=== PATIENT | female | born 1955 | race Caucasian/White ===

== ENCOUNTER → 2017-12-31 09:34 | Outpatient (CLI) | payer OTHER, SELFPAY ==
[2017-12-31 09:42] LABS: Bacteria Urine None Seen; WBC Urine None Seen (0-5/HPF)
[2017-12-31 09:59] LABS: Add Manual Diff / Slide Review NO; Basophils Percent Auto 0.5 % (0-2); Eosinophils Percent Auto 2.9 % (2-4); Hematocrit 44.1 % (36-46); Hemoglobin 14.7 g/dL (12.0-16.0); Lymphocytes Percent Auto 33.7 % (25-40); Mean Corpuscular HGB Conc 33.3 % (30-36); Mean Corpuscular Hemoglobin 30.9 PG (26-34); Mean Corpuscular Volume 92.7 fL (80-100); Monocytes Percent Auto 7.7 % (3-14); Neutrophils Absolute Auto 2100 /uL (3000-5900); Neutrophils Percent Auto 55.2 % (50-75); Platelet Count 171 X10^3/uL (150-400); Red Blood Cell Count 4.76 X10^6/uL (4.0-5.2); Red Cell Distribution Width 13.4 % (11.6-14.8); White Blood Cell Count 3.7 X10^3/uL (4.5-11.0)
[2017-12-31 10:06] LABS: Hemoglobin A1C% w Est Avg Glu 5.5 % (4.0-6.0)
[2017-12-31 10:19] LABS: Alanine Aminotransferase 22 IU/L (9-52); Albumin 4.5 g/dL (3.5-5.0); Albumin Globulin Ratio 1.6 (1.0-2.8); Alkaline Phosphatase 51 U/L (38-126); Aspartate Aminotransferase 26 IU/L (14-36); BUN Creatinine Ratio 23.8 (6-22); Bilirubin Total 0.7 mg/dL (0.2-1.3); Blood Urea Nitrogen 19 mg/dL (7-17); Calcium 10.3 mg/dL (8.4-10.2); Carbon Dioxide 31 mmol/L (22-32); Chloride 104 mmol/L (98-107); Cholesterol 246 mg/dL (140-199); Estimated Glomerular Filt Rate > 60.0 mL/min (>60); Gamma Glutamyl Transpeptidase 14 U/L (12-43); Globulin 2.8 g/dL (1.7-4.1); Glucose 94 mg/dL (80-110); HDL Cholesterol 71 mg/dL (40-60); HEMOLYSIS < 15 (0-50); LDL Cholesterol Calculated 163 mg/dL (<100); Lactate Dehydrogenase 391 U/L (313-618); Magnesium 2.2 mg/dL (1.6-2.3); Potassium 4.6 mmol/L (3.4-5.1); Sodium 143 mmol/L (137-145); Total Protein 7.3 g/dL (6.3-8.2); Triglycerides 59 mg/dL (35-150)
[2017-12-31 10:31] LABS: Appearance Urine UA CLEAR; Bilirubin Urine UA NEGATIVE (NEGATIVE); Color Urine UA YELLOW; Glucose Urine UA NEGATIVE (Normal); Ketones Urine UA NEGATIVE (NEGATIVE); Leukocyte Esterase Urine UA NEGATIVE (NEGATIVE); Nitrite Urine UA Negative (Negative); Occult Blood Urine UA TRACE-INTACT (Negative); Protein Urine UA NEGATIVE (Negative); Urobilinogen Urine UA 0.2 E.U./dL (0.2); pH Urine UA 5.5 (4.5-8.0)
[2017-12-31 10:36] LABS: Culture Indicated Urine Cult Not Indicated; RBC Urine 0-1/HPF (0-5/HPF); Squamous Epithelial Cell Urine 1-5 /HPF
[2017-12-31 10:48] LABS: Ferritin 31.8 ng/mL (11.1-264)
[2017-12-31 12:40] LABS: Free T4, Direct Thyroxine 0.81 ng/dL (0.78-2.19)
[2017-12-31 12:54] LABS: Thyroid Stimulating Hormone 4.37 uIU/mL (0.47-4.68)
== END ==
PROVIDERS: Family Provider Naturopath; PCP Naturopath; Visit Provider Naturopath
DX: D70.9 Neutropenia, unspecified (principal); E03.9 Hypothyroidism, unspecified; G21.3 Postencephalitic parkinsonism
CPT/HCPCS: 36415; 80053; 80061; 81001; 82728; 82977; 83036; 83615; 83735; 84439; 84443; 84481; 85025

== ENCOUNTER → 2018-12-04 10:09 | Outpatient (CLI) | payer OTHER, SELFPAY ==
[2018-12-04 10:31] LABS: RBC Urine None Seen (0-5/HPF)
[2018-12-04 11:06] LABS: Add Manual Diff / Slide Review NO; Basophils Absolute Auto 0 /uL (0-100); Basophils Percent Auto 0.5 % (0-2); Eosinophils Absolute Auto 100 /uL (0-450); Eosinophils Percent Auto 1.6 % (2-4); Hematocrit 41.8 % (36-46); Hemoglobin 14.3 g/dL (12.0-16.0); Lymphocytes Absolute Auto 1100 /uL (1100-4500); Lymphocytes Percent Auto 30.9 % (25-40); Mean Corpuscular HGB Conc 34.3 % (30-36); Mean Corpuscular Hemoglobin 31.8 PG (26-34); Mean Corpuscular Volume 92.7 fL (80-100); Monocytes Absolute Auto 300 /uL (0-900); Monocytes Percent Auto 7.1 % (3-14); Neutrophils Absolute Auto 2100 /uL (1500-7000); Neutrophils Percent Auto 59.9 % (50-75); Platelet Count 155 X10^3/uL (150-400); Red Blood Cell Count 4.51 X10^6/uL (4.0-5.2); Red Cell Distribution Width 13.1 % (11.6-14.8); White Blood Cell Count 3.6 X10^3/uL (4.5-11.0)
[2018-12-04 11:15] LABS: Hemoglobin A1C% w Est Avg Glu 5.2 % (4.0-6.0)
[2018-12-04 11:28] LABS: Appearance Urine UA SL CLOUDY; Bilirubin Urine UA NEGATIVE (NEGATIVE); Color Urine UA YELLOW; Glucose Urine UA NEGATIVE (Negative); Ketones Urine UA NEGATIVE (NEGATIVE); Leukocyte Esterase Urine UA 1+ (NEGATIVE); Nitrite Urine UA NEGATIVE (Negative); Occult Blood Urine UA NEGATIVE (Negative); Protein Urine UA NEGATIVE (Negative); Specific Gravity Urine UA 1.025 (1.000-1.035); Urobilinogen Urine UA 0.2 E.U./dL (0.2)
[2018-12-04 11:36] LABS: Alanine Aminotransferase 16 IU/L (9-52); Albumin 4.3 g/dL (3.5-5.0); Albumin Globulin Ratio 1.7 (1.0-2.8); Alkaline Phosphatase 58 U/L (38-126); Aspartate Aminotransferase 24 IU/L (14-36); BUN Creatinine Ratio 27.5 (6-22); Bilirubin Total 0.6 mg/dL (0.2-1.3); Blood Urea Nitrogen 22 mg/dL (7-17); Calcium 10.2 mg/dL (8.4-10.2); Carbon Dioxide 30 mmol/L (22-32); Chloride 104 mmol/L (98-107); Cholesterol 190 mg/dL (140-199); Creatine Kinase 97 U/L (30-135); Estimated Glomerular Filt Rate > 60.0 mL/min (>60); Globulin 2.6 g/dL (1.7-4.1); Glucose 93 mg/dL (80-110); HDL Cholesterol 59 mg/dL (40-60); HEMOLYSIS < 15 (0-50); LDL Cholesterol Calculated 121 mg/dL (<100); Potassium 4.5 mmol/L (3.4-5.1); Sodium 141 mmol/L (137-145); Total Protein 6.9 g/dL (6.3-8.2); Triglycerides 52 mg/dL (35-150)
[2018-12-04 11:46] LABS: Vitamin D 25 Hydroxy (D3) 31.8 ng/mL (30.0-100.0)
[2018-12-04 11:47] LABS: Amorphous Sediment Urine 1+; Bacteria Urine Many (>30); Culture Indicated Urine Cult Not Indicated; Squamous Epithelial Cell Urine 5-10 /HPF (0-5/HPF); WBC Urine 1-5/HPF (0-5/HPF)
[2018-12-04 11:48] LABS: Free T3, Triiodothyronine Free 2.75 pg/mL (2.77-5.27); Free T4, Direct Thyroxine 0.83 ng/dL (0.78-2.19)
[2018-12-04 12:02] LABS: Thyroid Stimulating Hormone 2.05 uIU/mL (0.47-4.68)
[2018-12-04 12:05] LABS: Ferritin 34.2 ng/mL (11.1-264)
== END ==
PROVIDERS: PCP Naturopath; Visit Provider Naturopath
DX: E55.9 Vitamin D deficiency, unspecified (principal); E06.3 Autoimmune thyroiditis; G21.8 Other secondary parkinsonism
CPT/HCPCS: 36415; 80053; 80061; 81001; 82306; 82550; 82553; 82728; 83036; 84439; 84443; 84481; 85025

== ENCOUNTER 2019-05-16 12:16 | Emergency (ER) | payer OTHER, SELFPAY ==
[2019-05-16 12:18] VITALS: BP 137/77; PULSE 69; RESP 18; TEMP 36.6; O2SAT 98; BMI 21.5
--- NOTE | 2019-05-16 12:42 | DI.RAD.S_ITS ---
PROCEDURE: XR RIBS RT MIN 3V W CXR 1V INDICATIONS: fell and pain in right upper back and ribs TECHNIQUE: 2 views of the right ribs were acquired, along with a single view chest. COMPARISON: [facility], CHEST 1 VIEW, 08/16/2016, 11:55. [facility], CHEST 2 VIEW, 10/03/2012, 8:59. FINDINGS: Surgical changes and devices: None. Bones and chest wall: A marker is placed upon the area of clinical concern. Within this region, no displaced rib fracture or other significant rib abnormality can be seen. No rib fractures are seen elsewhere. No suspicious bony lesions. Overlying soft tissues appear unremarkable. Lungs and pleura: No pleural effusions or pneumothorax. Lungs appear clear. Mediastinum: Mediastinal contours appear normal. Heart size is normal. IMPRESSION: No displaced rib fractures are seen. No pneumothorax. Dictated by: John Armas M.D. on 05/16/2019 at 12:24 Approved by: John Armas M.D. on 05/16/2019 at 12:25
[2019-05-16] MEDS: ACETAMINOPHEN 325 MG TABLET 650 MG PO (13:03)
--- NOTE | 2019-05-16 13:03 | ED_ITS ---
HPI - Fall <BRIAN Garcia - Last Filed: 05/16/19 20:10> General Chief Complaint: Fall Stated Complaint: fall on , mid back pain Time Seen by Provider: 05/16/19 12:22 Source: patient and family Mode of arrival: Wheelchair Limitations: no limitations History of Present Illness HPI Narrative: This is a 63 year female, nonsmoker, who presents to ED with significant other with chief complain of right side thoracic pain and rib pain. Patient states she has history of Parkinson's for last 10 years and she had fall twice this week. Patient fell backwards on grassy/dirt ground 2 days ago. Patient denies injuring her head or having loss of consciousness. Patient denies vomiting or vision changes. Patient currently is not using any cane or walker for ambulation assistance. Patient reports pain increases with certain movements such as pushing her body backwards to sit up in bed in deep breathing. Significant other has been massaging on discomfort area and this has been helpful and also warm pack has been helpful for her discomfort. Related Data Home Medications Medication Instructions Recorded Confirmed LEVOTHYROXINE SODIUM (LEVOTHROID) 0.1 mg PO QDAY #0 10/01/11 11/13/17 MULTIVITAMIN (#MULTIPLE VITAMINS) 1 cap PO QDAY #0 10/01/11 11/13/17 magnesium sulfate (laxative) 495 495 mg PO ONCE gram 11/13/17 11/13/17 mg/5 gram oral granules Previous Rx's Medication Instructions Recorded cyclobenzaprine 5 - 10 mg PO BID PRN #10 tab 05/16/19 lidocaine 1 patch TOP DAILY #15 each 05/16/19 Allergies Allergy/AdvReac Type Severity Reaction Status Date / Time No Known Drug Allergies Allergy Verified 11/13/17 10:53 Review of Systems <Jamari BurnsBRIAN Chambers - Last Filed: 05/16/19 20:10> Review of Systems Narrative: General: Denies fever, chills, fatigue, malaise, sweats. HEENT: Denies sinus pain, ear pain, sore throat, difficulty swallowing, dizziness. Respiratory: Denies dyspnea, cough, wheezing, hemoptysis, sputum. Cardiovascular: Denies chest pain, palpitations, orthopnea, edema. Gastrointestinal: Denies nausea, vomiting, abdominal pain, diarrhea, constipation, melena. : Denies dysuria, frequency, incontinence, hematuria, urinary retention. Musculoskeletal: See HPI Skin: Denies rash, skin lesions, or other. Neurologic: Denies weakness, headache, numbness, change in speech, confusion, seizures, (+) tremors, (+) incoordination. Psychiatric: No concerning psychosocial issues. 12-point review of systems is negative except for those stated above. Patient History <BRIAN Garcia - Last Filed: 05/16/19 20:10> Medical History Hypothyroidism (Chronic) Parkinsons disease (Chronic ~2009) Surgical History History of lumpectomy of left breast (Resolved ~09/2011) Family History Father No problems noted. Mother No problems noted. Social History marital status: number of children: 2 household members: spouse lives independently: Yes pets and animals: Yes education level: college occupational status: other (Artist) Smoking Status: Never smoker alcohol intake: current (1-3 A WEEK ) substance use type: does not use during the past year weight has: remained stable well-balanced diet: daily or most days daily servings fruits/ve or more times/day caffeine: Yes eating out: 1-3 times/week Type(s) of exercise: other (hiking, Parkinson's Disease exercise daily) frequency: 3-4 times per week duration: 60-90 minutes/day Smoking Status: Never smoker alcohol intake frequency: 0-2 drinks per day Alcohol type: wine Substance Use Type: does not use Exam <BRIAN Garcia - Last Filed: 05/16/19 20:10> Narrative Exam Narrative: GEN: Alert, oriented x 3, well appearing and nourished, and in no acute distress. Head: Normal cephalic, atraumatic. No scalp or temporal tenderness, palpable mass or rash. EYES: Pupils are equal, round, and reactive to light and accommodation. Extraocular muscles are intact bilaterally. There is no subconjunctival hemorrhage, exudate and sclera non-icteric. ENT: Bilateral auditory canals and tympanic membranes clear. Hearing grossly intact. Nose without bleeding, purulent discharge or deviation. Facial sinuses nontender to palpate. Mucous membrane moist, no mucosal lesion. Throat without erythema, tonsillar hypertrophy or exudate. Uvula in midline, airway patent. Neck: Trachea in midline. No JVD, non-tender without lymphadenopathy. No masses or thyroid megaly. Supple, non-tender and no meningeal signs. CARDIAC: Normal regular rate and rhythm without murmurs, gallops, or rubs. No chest wall tenderness. No peripheral edema, cyanosis or pallor. Capillary refill is less than 2 seconds. RESPIRATORY: Lungs are clear to auscultate bilaterally. No cough, wheezes, rales, or rhonchi. No stridor, respiratory distress, increase work of breathing , or accessary muscle used. ABD: Abdomen soft, nontender and non-distended. No guarding or rebound tenderness to palpate. Bowel sounds are normal in all 4 quadrants. There is no palpable masses or organomegaly. EXT: Full painless ROM of all extremities with no loss of sensation, strength, effusion or edema. SKIN: Warm, dry, normal color for patient. No erythema, lesions or rash over v isible areas. BACK: Nontender without deformity or crepitance. No flank tenderness. Reports pain is deep in right posterior thoracic and rib area when she attempted to sit up. NEUROLOGICAL: Alert and oriented to place, time and person. Sensation and motor function intact bilaterally. Tremors to right hand. No facial droops, dysphasia. PSYCHIATRIC: Good judgement and reason, without hallucinations, abnormal affect or abnormal behaviors during the examination. Initial Vital Signs Initial Vital Signs: Vital Signs Temperature 97.9 F 05/16/19 12:18 Pulse Rate 69 05/16/19 12:18 Respiratory Rate 18 05/16/19 12:18 Blood Pressure 137/77 05/16/19 12:18 Pulse Oximetry 98 05/16/19 12:18 Back/Spine/Pelvis Thoracic/Lumbar Spine: thoracic and lumbar spine normal to inspection, No surgical scar(s) present, thoraco-lumbar ROM normal, No pain with thoraco-lumbar ROM, paraspinal tenderness, No thoraco-lumbar ROM limited, thoraco-lumbar spasm, No thoracic spinal tenderness and No lumbar spinal tenderness <Jamison Nath DO - Last Filed: 05/17/19 07:34> Initial Vital Signs Initial Vital Signs: Vital Signs Temperature 97.9 F 05/16/19 12:18 Pulse Rate 69 05/16/19 12:18 Respiratory Rate 18 05/16/19 12:18 Blood Pressure 137/77 05/16/19 12:18 Pulse Oximetry 98 05/16/19 12:18 Scores <BRIAN Garcia - Last Filed: 05/16/19 20:10> GCS Jason coma scale eye opening: Spontaneous [place] coma scale verbal response: Orientated [place] coma scale motor response: Obey commands [place] coma scale total score: 15 Course <BRIAN Garcia - Last Filed: 05/16/19 20:10> Orders Ordered: Discontinued Medications Acetaminophen (Tylenol) 650 mg PO NOW ONE Stop: 05/16/19 12:43 Last Admin: 05/16/19 13:03 Dose: 650 mg Documented by: ADELE Cyclobenzaprine HCl (Flexeril) 5 mg PO NOW ONE Stop: 05/16/19 12:43 Last Admin: 05/16/19 13:04 Dose: 5 mg Documented by: ADELE Ketorolac Tromethamine (Toradol) 15 mg IM NOW ONE Stop: 05/16/19 12:43 Last Admin: 05/16/19 13:04 Dose: 15 mg Documented by: ADELE Lidocaine (Lidoderm) 1 each TOP NOW ONE Stop: 05/16/19 14:09 Last Admin: 05/16/19 14:24 Dose: 1 each Documented by: ADELE Lorazepam (Ativan) 0.5 mg IV NOW ONE Stop: 05/16/19 12:25 Vital Signs Vital signs: Vital Signs - 8 hr 05/16/19 12:18 05/16/19 13:54 05/16/19 15:12 Temperature 97.9 F Pulse Rate 69 66 65 Respiratory Rate 18 18 Blood Pressure 137/77 Blood Pressure [Right Arm] 137/77 111/63 Pulse Oximetry 98 99 99 <Jamison Nath DO - Last Filed: 05/17/19 07:34> Orders Ordered: Discontinued Medications Acetaminophen (Tylenol) 650 mg PO NOW ONE Stop: 05/16/19 12:43 Last Admin: 05/16/19 13:03 Dose: 650 mg Documented by: ADELE Cyclobenzaprine HCl (Flexeril) 5 mg PO NOW ONE Stop: 05/16/19 12:43 Last Admin: 05/16/19 13:04 Dose: 5 mg Documented by: ADELE Ketorolac Tromethamine (Toradol) 15 mg IM NOW ONE Stop: 05/16/19 12:43 Last Admin: 05/16/19 13:04 Dose: 15 mg Documented by: ADELE Lidocaine (Lidoderm) 1 each TOP NOW ONE Stop: 05/16/19 14:09 Last Admin: 05/16/19 14:24 Dose: 1 each Documented by: ADELE Lorazepam (Ativan) 0.5 mg IV NOW ONE Stop: 05/16/19 12:25 Vital Signs Vital signs: Vital Signs - 8 hr 05/16/19 12:18 05/16/19 13:54 05/16/19 15:12 Temperature 97.9 F Pulse Rate 69 66 65 Respiratory Rate 18 18 Blood Pressure 137/77 Blood Pressure [Right Arm] 137/77 111/63 Pulse Oximetry 98 99 99 MDM - Fall <BRIAN Garcia - Last Filed: 05/16/19 20:10> Differential Diagnosis Differential diagnosis: Likely compression fracture and other (Rib fracture, thoracic strain, pneumothorax) Medical Records Attestation: I reviewed the patient's medical records. Imaging Data XR-Ribs and chest, Rt: Radiologist's Impression: [address] [address] XRay Report Signed Patient: Ly Foy BMR#: [id number] : 5Acct:[id number] Age/Sex: 63 / FDate of Service: 05/16/19 Loc: ED Accession Number: [id number] Procedure: XR ribs RT min 3V w CXR1V Ordering Provider: Jamari Ortega PROCEDURE: XR RIBS RT MIN 3V W CXR 1V INDICATIONS: fell and pain in right upper back and ribs TECHNIQUE: 2 views of the right ribs were acquired, along with a single view chest. [facility], [facility], CHEST 2 VIEW, 10/03/2012, 8:59. FINDINGS: Surgical changes and devices: None. Bones and chest wall: A marker is placed upon the area of clinical concern. Within this region, no displaced rib fracture or other significant rib abnormality can be seen. No rib fractures are seen elsewhere. No suspicious bony lesions. Overlying soft tissues appear unremarkable. Lungs and pleura: No pleural effusions or pneumothorax. Lungs appear clear. Mediastinum: Mediastinal contours appear normal. Heart size is normal. IMPRESSION: No displaced rib fractures are seen. No pneumothorax. Dictated by: John Armas M.D. on 05/16/2019 at 12:24 Approved by: John Armas M.D. on 05/16/2019 at 12:25 MDM Narrative Medical decision making narrative: This is a 63-year-old female has history of Parkinson's disease and she has been frequently falling. The patient reports deep discomfort in right upper thoracic and ribs from falling backwards 2 days ago and landed on right side of back. Back exam was benign w/o deformity, bruise, swelling. No tenderness to palpate in spinous process. Patient reports massage and warm pack helped with discomfort. X-ray test does not show acute findings such as displaced rib fracture, pneumothorax, bony lesions. Patient was medicated with Flexeril, Tylenol, IM Toradol, and Lidocaine patch with improved discomfort. Patient discharged to home with Flexeril and lidocaine patch as needed use with [id number] Tylenol and Motrin along Flexeril medication precautions. Return precautions were discussed with the patient and patient advised to follow with PCP and referral to physical therapist for balance evaluation and treatment and to consider using walker to prevent falling and injuries. The patient and spouse verbalized understanding and agrees with the treatment plan. Discharge Plan Departure Patient Disposition: Home Clinical Impression: Acute right-sided thoracic back pain Fall Qualifiers: Encounter type: initial encounter Qualified Code(s): W19.XXXA - Unspecified fall, initial encounter Discharge Date/Time: 05/16/19 15:12 Activity Restrictions/Additional Instructions: You have been diagnosed with [right-sided back pain and rib pain. X-ray test does not show fractures or pneumothorax. you were treated with Tylenol, IM Toradol, Flexeril, and lidocaine patch which helped with her symptoms]. What to do: *Take your medications as directed. For Flexeril and lidocaine patch has been transmitted to [facility]. Lidocaine patch stays on for 12 hours and off for 12 hours and Flexeril may cause drowsiness so please take precaution. You can take [id number] Tylenol 650 4 times a day as needed and ibuprofen 400-600 mg 3 times a day with food as needed for discomfort. *Follow up with your primary care provider in 2-3 days, call for an appointment. You may need a referral to physical therapist and a walker or cane for ambulation assistance. Let them know you were seen in the ED and that we asked you to be seen in follow up. *Return to ED if you have any new, worsening, or concerning symptoms, such as [chest pain, breathing difficulty, unable to tolerate fluids, increasing pain, fever or any acute concerns]. Prescriptions: New cyclobenzaprine 5 mg tablet 5 - 10 mg PO BID PRN (Reason: muscle spasm) Qty: 10 RF: 0 lidocaine 5 % adhesive patch,medicated 1 patch TOP DAILY Qty: 15 RF: 0 No Action LEVOTHYROXINE SODIUM (LEVOTHROID) 0.1 mg PO QDAY Qty: 0 RF: 0 MULTIVITAMIN (#MULTIPLE VITAMINS) 1 cap PO QDAY Qty: 0 RF: 0 magnesium sulfate (laxative) 495 mg/5 gram granules 495 mg PO ONCE RF: 0 Referrals: Sarabjit Kat ND [Primary Care Provider] - <Jamison Nath DO - Last Filed: 05/17/19 07:34> Sign Out Provider Sign Out Attestation: Dr Nath Co-Sign Statement: I was available for consultation during this patient's emergency department visit. This chart is signed by myself for administrative purposes only. I did not have direct contact with this patient during this visit. They were seen independently by the APC.
[2019-05-16] MEDS: KETOROLAC 60 MG/2 ML VIAL 15 MG IM (13:04)
[2019-05-16] MEDS: CYCLOBENZAPRINE 5 MG TABLET PO (13:04)
[2019-05-16 13:54] VITALS: BP 137/77; PULSE 66; O2SAT 99
[2019-05-16] MEDS: LIDOCAINE PATCH 1 EACH ADH..PATCH TOP (14:24)
[2019-05-16 15:12] VITALS: BP 111/63; PULSE 65; RESP 18; O2SAT 99
== END 2019-05-16 15:12 | disposition home or self-care (01) ==
PROVIDERS: Emergency Provider Nurse Practitioner Family; PCP Naturopath
DX: M54.6 Pain in thoracic spine (principal); R07.81 Pleurodynia; W19.XXXA Unspecified fall, initial encounter; G20 Parkinson's disease
CPT/HCPCS: 71101; 96372; 99283; J1885

== ENCOUNTER → 2019-11-21 12:34 | Outpatient (CLI) | payer OTHER, SELFPAY ==
[2019-11-21 14:05] LABS: Free T3, Triiodothyronine Free 3.39 pg/mL (2.77-5.27); Free T4, Direct Thyroxine 0.92 ng/dL (0.78-2.19)
[2019-11-21 14:18] LABS: Thyroid Stimulating Hormone 1.65 uIU/mL (0.47-4.68)
[2019-11-22 06:36] LABS: Thyroid Peroxidase Antibodies 117 IU/mL (0-34)
[2019-11-22 23:07] LABS: Anti Thyroglobulin Antibody 112.9 IU/mL (0.0-0.9)
== END ==
PROVIDERS: PCP Family Medicine; Referring Provider Naturopath; Visit Provider Naturopath
DX: E06.3 Autoimmune thyroiditis (principal)
CPT/HCPCS: 36415; 84439; 84443; 84481; 86376; 86800

== ENCOUNTER → 2020-08-04 13:53 | Outpatient (CLI) | payer MEDICARE, OTHER, SELFPAY ==
[2020-08-04 14:16] LABS: Add Manual Diff / Slide Review NO; Basophils Absolute Auto 0 /uL (0-100); Basophils Percent Auto 0.6 % (0-2); Eosinophils Absolute Auto 0 /uL (0-450); Eosinophils Percent Auto 0.8 % (2-4); Hematocrit 41.6 % (36-46); Hemoglobin 13.9 g/dL (12.0-16.0); Lymphocytes Absolute Auto 1200 /uL (1100-4500); Lymphocytes Percent Auto 28.7 % (25-40); Mean Corpuscular HGB Conc 33.5 % (30-36); Mean Corpuscular Hemoglobin 31.1 PG (26-34); Mean Corpuscular Volume 92.9 fL (80-100); Monocytes Absolute Auto 300 /uL (0-900); Monocytes Percent Auto 6.4 % (3-14); Neutrophils Absolute Auto 2700 /uL (1500-7000); Neutrophils Percent Auto 63.5 % (50-75); Platelet Count 160 X10^3/uL (150-400); Red Blood Cell Count 4.48 X10^6/uL (4.0-5.2); Red Cell Distribution Width 13.1 % (11.6-14.8); White Blood Cell Count 4.3 X10^3/uL (4.5-11.0)
[2020-08-04 14:52] LABS: Alanine Aminotransferase 19 IU/L (<35); Albumin 4.3 g/dL (3.5-5.0); Albumin Globulin Ratio 1.7 (1.0-2.8); Alkaline Phosphatase 66 U/L (38-126); Aspartate Aminotransferase 26 IU/L (14-36); BUN Creatinine Ratio 33.8 (6-22); Bilirubin Total 0.6 mg/dL (0.2-1.3); Blood Urea Nitrogen 26 mg/dL (7-17); Calcium 10.5 mg/dL (8.4-10.2); Carbon Dioxide 28 mmol/L (22-32); Chloride 107 mmol/L (98-107); Cholesterol 204 mg/dL (140-199); Estimated Glomerular Filt Rate > 60.0 mL/min (>60); Globulin 2.5 g/dL (1.7-4.1); Glucose 90 mg/dL (80-110); HDL Cholesterol 78 mg/dL (40-60); HEMOLYSIS < 15 (0-50); LDL Cholesterol Calculated 114 mg/dL (<100); Potassium 4.3 mmol/L (3.4-5.1); Sodium 141 mmol/L (137-145); Total Protein 6.8 g/dL (6.3-8.2); Triglycerides 58 mg/dL (35-150)
[2020-08-04 15:06] LABS: Free T3, Triiodothyronine Free 3.61 pg/mL (2.77-5.27); Free T4, Direct Thyroxine 1.01 ng/dL (0.78-2.19)
== END ==
PROVIDERS: PCP Family Medicine; Referring Provider Family Medicine; Visit Provider Family Medicine
DX: E03.9 Hypothyroidism, unspecified (principal); G20 Parkinson's disease; Z85.3 Personal history of malignant neoplasm of breast
CPT/HCPCS: 36415; 80053; 80061; 84439; 84443; 84481; 85025

== ENCOUNTER → 2020-09-05 14:10 | Outpatient (CLI) | payer MEDICARE, OTHER, SELFPAY ==
--- NOTE | 2020-09-05 14:13 | DI.RAD.S_ITS ---
PROCEDURE: XR ANKLE LT MIN 3V INDICATIONS: infected pressure ulcer lateral malleolus TECHNIQUE: 3 views of the ankle were acquired. COMPARISON: None. FINDINGS: Bones: No fractures or dislocations. Ankle mortise is normally aligned. No suspicious bony lesions. No periosteal reaction. Soft tissues: No tibiotalar joint effusion. Achilles tendon appears normal. Mild swelling at the lateral malleolus. No foreign body. IMPRESSION: Mild swelling at the lateral malleolus. No underlying osseous abnormality demonstrated. If high suspicion for osteomyelitis consider MRI or three-phase bone scan for further evaluation. Dictated by: Flvaio Beckham M.D. on 09/05/2020 at 15:07 Approved by: Flavio Beckham M.D. on 09/05/2020 at 15:10
[2020-09-05 14:26] LABS: Add Manual Diff / Slide Review NO; Basophils Absolute Auto 0 /uL (0-100); Basophils Percent Auto 0.4 % (0-2); Eosinophils Absolute Auto 100 /uL (0-450); Eosinophils Percent Auto 1.3 % (2-4); Hematocrit 43.3 % (36-46); Hemoglobin 14.5 g/dL (12.0-16.0); Lymphocytes Absolute Auto 1000 /uL (1100-4500); Lymphocytes Percent Auto 23.1 % (25-40); Mean Corpuscular HGB Conc 33.5 % (30-36); Mean Corpuscular Hemoglobin 31.1 PG (26-34); Mean Corpuscular Volume 92.8 fL (80-100); Monocytes Absolute Auto 300 /uL (0-900); Monocytes Percent Auto 7.4 % (3-14); Neutrophils Absolute Auto 2900 /uL (1500-7000); Neutrophils Percent Auto 67.8 % (50-75); Platelet Count 162 X10^3/uL (150-400); Red Blood Cell Count 4.67 X10^6/uL (4.0-5.2); White Blood Cell Count 4.3 X10^3/uL (4.5-11.0)
== END ==
PROVIDERS: PCP Family Medicine; Referring Provider Student in an Organized Health Care Education/Training Program; Visit Provider Student in an Organized Health Care Education/Training Program
DX: L03.116 Cellulitis of left lower limb (principal); L89.529 Pressure ulcer of left ankle, unspecified stage
CPT/HCPCS: 36415; 73610; 85025

== ENCOUNTER → 2020-09-15 13:51 | Outpatient (CLI) | payer MEDICARE, OTHER, SELFPAY | PROVIDERS: PCP Family Medicine; Referring Provider Family Medicine; Visit Provider Family Medicine | DX: L01.09 Other impetigo (principal); S91.002A Unspecified open wound, left ankle, initial encounter; G20 Parkinson's disease | CPT/HCPCS: 97597; 99204; 99213 ==

== ENCOUNTER → 2020-09-26 11:16 | Outpatient (CLI) | payer MEDICARE, OTHER, SELFPAY | PROVIDERS: PCP Family Medicine; Referring Provider Family Medicine; Visit Provider Family Medicine | DX: S91.002A Unspecified open wound, left ankle, initial encounter (principal); G20 Parkinson's disease | CPT/HCPCS: 11042; 87070; 87075; 87205 ==

== ENCOUNTER → 2020-10-03 15:09 | Outpatient (CLI) | payer MEDICARE, OTHER, SELFPAY | PROVIDERS: PCP Family Medicine; Referring Provider Family Medicine; Visit Provider Family Medicine | DX: S91.002A Unspecified open wound, left ankle, initial encounter (principal) | CPT/HCPCS: 99213 ==

== ENCOUNTER → 2020-10-12 14:20 | Outpatient (CLI) | payer MEDICARE, OTHER, SELFPAY | PROVIDERS: PCP Family Medicine; Referring Provider Family Medicine; Visit Provider Family Medicine | DX: I87.2 Venous insufficiency (chronic) (peripheral) (principal); L97.321 Non-pressure chronic ulcer of left ankle limited to breakdown of skin; R60.0 Localized edema; G20 Parkinson's disease | CPT/HCPCS: 99213 ==

== ENCOUNTER → 2020-10-18 11:08 | Outpatient (CLI) | payer MEDICARE, OTHER, SELFPAY | PROVIDERS: PCP Family Medicine; Referring Provider Family Medicine; Visit Provider Family Medicine | DX: I87.2 Venous insufficiency (chronic) (peripheral) (principal); L97.321 Non-pressure chronic ulcer of left ankle limited to breakdown of skin; R60.0 Localized edema; G20 Parkinson's disease | CPT/HCPCS: 99211; 99213 ==

== ENCOUNTER → 2020-10-25 13:50 | Outpatient (CLI) | payer MEDICARE, OTHER, SELFPAY | PROVIDERS: PCP Family Medicine; Referring Provider Family Medicine; Visit Provider Family Medicine | DX: I87.2 Venous insufficiency (chronic) (peripheral) (principal); R60.0 Localized edema; G20 Parkinson's disease | CPT/HCPCS: 99213 ==

== ENCOUNTER → 2021-05-24 09:10 | Outpatient (CLI) | payer MEDICARE, OTHER, SELFPAY ==
[2021-05-24 11:00] LABS: Add Manual Diff / Slide Review NO; Basophils Absolute Auto 0 /uL (0-100); Basophils Percent Auto 0.6 % (0-2); Eosinophils Absolute Auto 100 /uL (0-450); Eosinophils Percent Auto 2.8 % (2-4); Hematocrit 41.5 % (36-46); Lymphocytes Absolute Auto 1000 /uL (1100-4500); Mean Corpuscular HGB Conc 33.7 % (30-36); Mean Corpuscular Hemoglobin 31.1 PG (26-34); Mean Corpuscular Volume 92.3 fL (80-100); Monocytes Absolute Auto 200 /uL (0-900); Monocytes Percent Auto 6.9 % (3-14); Neutrophils Absolute Auto 1700 /uL (1500-7000); Neutrophils Percent Auto 56.7 % (50-75); Platelet Count 176 X10^3/uL (150-400); White Blood Cell Count 2.9 X10^3/uL (4.5-11.0)
[2021-05-24 11:08] LABS: Alanine Aminotransferase 15 IU/L (<35); Albumin 4.5 g/dL (3.5-5.0); Albumin Globulin Ratio 1.6 (1.0-2.8); Alkaline Phosphatase 65 U/L (38-126); Aspartate Aminotransferase 30 IU/L (14-36); BUN Creatinine Ratio 26.5 (6-22); Bilirubin Total 0.9 mg/dL (0.2-1.3); Blood Urea Nitrogen 22 mg/dL (7-17); Calcium 10.1 mg/dL (8.4-10.2); Carbon Dioxide 32 mmol/L (22-32); Chloride 103 mmol/L (98-107); Cholesterol 236 mg/dL (140-199); Estimated Glomerular Filt Rate > 60.0 mL/min (>60); Globulin 2.8 g/dL (1.7-4.1); Glucose 92 mg/dL (80-110); HDL Cholesterol 82 mg/dL (40-60); HEMOLYSIS < 15 (0-50); LDL Cholesterol Calculated 145 mg/dL (<100); Potassium 3.9 mmol/L (3.4-5.1); Sodium 139 mmol/L (137-145); Total Protein 7.3 g/dL (6.3-8.2); Triglycerides 47 mg/dL (35-150)
[2021-05-24 11:33] LABS: Free T3, Triiodothyronine Free 3.32 pg/mL (2.77-5.27)
[2021-05-24 11:46] LABS: Thyroid Stimulating Hormone 3.21 uIU/mL (0.47-4.68)
[2021-05-25 06:12] LABS: Thyroid Peroxidase Antibodies 158 IU/mL (0-34)
[2021-05-30 19:09] LABS: Thyroglobulin Level 10 ng/mL (.)
== END ==
PROVIDERS: PCP Family Medicine; Referring Provider Family Medicine; Visit Provider Family Medicine
DX: E03.9 Hypothyroidism, unspecified (principal); Z85.3 Personal history of malignant neoplasm of breast
CPT/HCPCS: 36415; 80053; 80061; 84432; 84439; 84443; 84481; 85025; 86376

== ENCOUNTER → 2021-06-20 12:59 | Outpatient (CLI) | payer MEDICARE, OTHER, SELFPAY ==
--- NOTE | 2021-06-20 13:01 | DI.RAD.S_ITS ---
PROCEDURE: XR T AND L SPINE 2 TO 3 VIEWS INDICATIONS: scoliosis, worsening back pain TECHNIQUE: 2 views acquired of the thoracolumbar spine. COMPARISON: 08/20/2016 lumbar spine radiographs FINDINGS: Mild to moderate dextroscoliosis in the lumbar spine. Trace thoracic levoscoliosis. No listhesis. Spondylitic changes in the lumbar spine characterized by disc height loss, degenerative endplate change, and facet hypertrophy. IMPRESSION: [id number] lumbar dextroscoliosis and trace lumbar levoscoliosis with associated spondylosis in the lumbar spine. Dictated by: Abran Ward M.D. on 06/20/2021 at 15:12 Approved by: Abran Ward M.D. on 06/20/2021 at 15:13
== END ==
PROVIDERS: PCP Family Medicine; Referring Provider Family Medicine; Visit Provider Family Medicine
DX: M41.86 Other forms of scoliosis, lumbar region (principal); M54.9 Dorsalgia, unspecified; M47.816 Spondylosis without myelopathy or radiculopathy, lumbar region
CPT/HCPCS: 72082

== ENCOUNTER 2021-09-14 13:00 | Outpatient (RCR) | payer MEDICARE, OTHER, SELFPAY ==
--- NOTE | 2021-07-19 16:00 | PT.OPPOC ---
Physical, Occupational & Speech Therapy At [facility] Current Diagnoses Other idiopathic scoliosis, thoracolumbar region (07/19/21) Dorsalgia, unspecified (07/19/21) Visit Care Team Role Provider Type Naye Ventura DO Attending Provider Physician Family Provider Primary Care Provider Referring Provider Specialty: Family Practice Address: [address] [place] [address], [place], [address] Email: [email or web address] Plan Of Care PT-OP-T Assessment and Plan Start: 07/11/21 12:32 Freq: Status: Active Protocol: Document 07/20/21 13:00 AMB (Rec: 07/20/21 13:47 AMB [id number]) Physical Therapy Assessment Rehab Potential Rehabilitation Potential Good Evaluation Complexity Number of Personal Factors/Comorbidities 3 or More Number of Body Systems Impaired 4 or More Clinical Presentation at Evaluation Evolving Impairments Impairments Gait,Posture,ROM,Strength Goals Two Impairment Gait Short Term Goal (STG) Roxanne will ambulate with good step length and improved trunk rotation for 6 minutes over smooth terrain. STG Duration 4 weeks One Impairment Lumbar flexion Short Term Goal (STG) Roxanne will improve her standing lumbar flexion to 50 degrees. STG Duration 4 weeks Alf Goal (LTG) Roxanne will wash dishes with good body mechanics and with pain of 3/10 or less. LTG Duration 8 weeks Assessment Summary Assessment Roxanne attends physical therapy with stiffness and back pain related to scoliosis and PD. Roxanne no longer drives and feels that transportation is a limiting factor due to being reliant on her to drive her to appointments, this could limit physical therapy progression. She is tall, and leaning over increases her pain significantly. She will benefit from physical therapy to work on moving to reduce stiffness, posture, strengthening LEs and body mechanics to reduce the strain on her spine which is impacted by both her scoliosis and parkinsons related stiffness. Physical Therapy Plan Frequency and Duration Frequency of Treatment 2x/Week Duration of Treatment 8 weeks Plan of Care Start Date 07/20/21 Plan of Care End Date 09/14/21 Therapeutic Interventions Therapeutic Interventions Home Exercise Program,Joint Mobilizations,Manual Therapy, Neuromuscular Re-education, Self-Care/Home Management, Therapeutic Activities, Therapeutic Exercises Modalities Cold Pack/Ice Massage,Electric Stimulation,Hot Packs Next Visit Focus/Plan Next Note Type Treatment Note Next Visit Plan Reassess cat/cow, donnell pose, evaluate floor transfer for safety, begin work on pec/hip flexor stretching and moving through full amplitude Plan of Care Dates Plan of Care Start Date 07/20/21 Plan of Care End Date 09/14/21 Electronically Signed by: Kellen Templeton, PT 07/23/21 0381 Please Sign and Return: I have reviewed this Plan of Care and certify that the skilled therapy services above are required to meet the patient?s needs. Physician Signature Date Printed Name and Credentials Clinical Instructor Signature Printed Name and Credentials
--- NOTE | 2021-07-19 16:00 | PT.OIE ---
Current Diagnoses Other idiopathic scoliosis, thoracolumbar region (07/19/21) Dorsalgia, unspecified (07/19/21) Past Medical History (Last Updated 06/13/21 @ 16:51 by Naye Ventura DO) History of lumpectomy of left breast (~09/2011) Hypothyroidism Parkinsons disease (~2009) Scoliosis Past Surgical History (Last Reviewed 06/13/21 @ 16:50 by Naye Ventura DO) History of lumpectomy of left breast (~09/2011) Visit Care Team Role Provider Type Naye Ventura DO Attending Provider Physician Family Provider Primary Care Provider Referring Provider Specialty: [facility] Practice Address: [address] [place] [address], [facility] Email: [email or web address] Physical Therapy Initial Evaluation PT-OP-A Visit Information Start: 07/11/21 12:32 Freq: Status: Active Protocol: Document 07/19/21 13:00 AMB (Rec: 07/19/21 13:54 AMB [id number]) Out-Patient Physical Therapy Visit Information Visit Information Visit Type Initial Evaluation Visit Start Time 13:00 Visit Stop Time 13:45 Total Visit Minutes 45 Visit Number 1 PT-OP-B Current Condition Start: 07/11/21 12:32 Freq: Status: Active Protocol: Document 07/19/21 13:00 AMB (Rec: 07/19/21 13:54 AMB [id number]) Current Condition History of Current Condition Onset Date Last few years Current Complaints Right back pain History of Current Condition Roxanne attends PT for back pain associated with scoliosis and parkinsons disease. She reports that leaning over increases back pain, hasn't been hiking as much or exercising. She is tall (6') and so leaning over to cook or wash dishes is a big irritant for her back. She reports a feeling of right leg weakness. Started carbidopa/levodopa in January hasn't been falling since then but was before. L sided breast cancer history. Prior Treatments and Tests X-ray: 06/20/21: mild/moderate lumbar dextroscoliosis and trace thoracic levoscoliosis Treatment Goals Patient/Caregiver Goals Return to hiking/ wash dishes without back pain Prior Functional Status Baseline Function- ADL's Modified Independent Baseline Function- Mobility Modified Independent Current Functional Impairments (Reported) Functional Limitations- ADL's no longer driving, less active due to PD diagnosis--- taking half of the prescribed levodopa/carbidopa as she is worried about the medication/ doesn't like taking medication Personal Factors Other Personal Factors That May Effect Hx L breast CA Therapy/Recovery PT-OP-G Mobility & Gait Start: 07/20/21 11:16 Freq: Status: Active Protocol: Document 07/19/21 13:00 AMB (Rec: 07/20/21 13:37 AMB [id number]) OP Gait Assessment Comments Gait Comments Difficulty initiating movement with gait and transfers, worse on the right, small movement with first 1-3 steps then gait becomes more fluid PT-OP-H Neuro Start: 07/20/21 11:16 Freq: Status: Active Protocol: Document 07/19/21 13:00 AMB (Rec: 07/20/21 13:34 AMB [id number]) Muscle Tone Tone Assessment Upper Extremity Manifestations of Tone Resting Tremors Muscle Tone Comments bilateral in hands/arms-- pt reports L UE forearm pain PT-OP-J Posture/Palpation/Skin Start: 07/11/21 12:32 Freq: Status: Active Protocol: Document 07/19/21 13:00 AMB (Rec: 07/20/21 13:34 AMB [id number]) Posture Evaluation Comments Posture Comments moderate thoracic kyphosis, flat lumbar spine Palpation Assessment Location One Palpation Location R Low back Palpation Findings Soft Tissue Tightness Palpation Details Tenderness at right low back/ QL paraspinals PT-OP-K Range of Motion Start: 07/11/21 12:32 Freq: Status: Active Protocol: Document 07/19/21 13:00 AMB (Rec: 07/20/21 13:34 AMB [id number]) Lumbar Spine Range of Motion Lumbar Spine Active Degrees Testing Position Standing Flexion 40 Extension 25 Lateral Flexion Left 25 Lateral Flexion Right 10 ROM Limitations Pain PT-OP-M Strength Start: 07/11/21 12:32 Freq: Status: Active Protocol: Document 07/19/21 13:00 AMB (Rec: 07/20/21 13:34 AMB [id number]) Hip Strength Hip Manual Muscle Testing Right Flexion (L2) 4 Good Extension (S1) 4- Good- Left Flexion (L2) 4 Good Extension (S1) 4- Good- Knee Strength Knee Manual Muscle Testing Right Flexion (S2) 4 Good Extension (L3) 4 Good Left Flexion (S2) 4 Good Extension (L3) 4 Good Ankle/Foot Strength Ankle and Foot Manual Muscle Testing Right Dorsiflexion (L4) 4 Good Plantarflexion (S1) 3- Fair- Left Dorsiflexion (L4) 4 Good Plantarflexion (S1) 4 Good PT-OP-T Assessment and Plan Start: 07/11/21 12:32 Freq: Status: Active Protocol: Document 07/20/21 13:00 AMB (Rec: 07/20/21 13:47 AMB [id number]) Physical Therapy Assessment Rehab Potential Rehabilitation Potential Good Evaluation Complexity Number of Personal Factors/Comorbidities 3 or More Number of Body Systems Impaired 4 or More Clinical Presentation at Evaluation Evolving Impairments Impairments Gait,Posture,ROM,Strength Goals Two Impairment Gait Short Term Goal (STG) Roxanne will ambulate with good step length and improved trunk rotation for 6 minutes over smooth terrain. STG Duration 4 weeks One Impairment Lumbar flexion Short Term Goal (STG) Roxanne will improve her standing lumbar flexion to 50 degrees. STG Duration 4 weeks Director Of Optimization Goal (LTG) Roxanne will wash dishes with good body mechanics and with pain of 3/10 or less. LTG Duration 8 weeks Assessment Summary Assessment Roxanne attends physical therapy with stiffness and back pain related to scoliosis and PD. Roxanne no longer drives and feels that transportation is a limiting factor due to being reliant on her to drive her to appointments, this could limit physical therapy progression. She is tall, and leaning over increases her pain significantly. She will benefit from physical therapy to work on moving to reduce stiffness, posture, strengthening LEs and body mechanics to reduce the strain on her spine which is impacted by both her scoliosis and parkinsons related stiffness. Physical Therapy Plan Frequency and Duration Frequency of Treatment 2x/Week Duration of Treatment 8 weeks Plan of Care Start Date 07/20/21 Plan of Care End Date 09/14/21 Therapeutic Interventions Therapeutic Interventions Home Exercise Program,Joint Mobilizations,Manual Therapy, Neuromuscular Re-education, Self-Care/Home Management, Therapeutic Activities, Therapeutic Exercises Modalities Cold Pack/Ice Massage,Electric Stimulation,Hot Packs Next Visit Focus/Plan Next Note Type Treatment Note Next Visit Plan Reassess cat/cow, donnell pose, evaluate floor transfer for safety, begin work on pec/hip flexor stretching and moving through full amplitude
--- NOTE | 2021-07-25 15:32 | PT.OTN ---
Current Diagnoses Other idiopathic scoliosis, thoracolumbar region (07/25/21) Dorsalgia, unspecified (07/25/21) Physical Therapy Treatment Note PT-OP-A Visit Information Start: 07/11/21 12:32 Freq: Status: Active Protocol: Document 07/25/21 13:00 AMB (Rec: 07/25/21 15:32 AMB [id number]) Out-Patient Physical Therapy Visit Information Visit Information Visit Type Treatment Note Visit Start Time 13:00 Visit Stop Time 13:45 Total Visit Minutes 45 Visit Number 2 PT-OP-B Current Condition Start: 07/11/21 12:32 Freq: Status: Active Protocol: Document 07/19/21 13:00 AMB (Rec: 07/19/21 13:54 AMB [id number]) Current Condition History of Current Condition Onset Date Last few years Current Complaints Right back pain History of Current Condition Roxanne attends PT for back pain associated with scoliosis and parkinsons disease. She reports that leaning over increases back pain, hasn't been hiking as much or exercising. She is tall (6') and so leaning over to cook or wash dishes is a big irritant for her back. She reports a feeling of right leg weakness. Started carbidopa/levodopa in January hasn't been falling since then but was before. L sided breast cancer history. Prior Treatments and Tests X-ray: 06/20/21: mild/moderate lumbar dextroscoliosis and trace thoracic levoscoliosis Treatment Goals Patient/Caregiver Goals Return to hiking/ wash dishes without back pain Prior Functional Status Baseline Function- ADL's Modified Independent Baseline Function- Mobility Modified Independent Current Functional Impairments (Reported) Functional Limitations- ADL's no longer driving, less active due to PD diagnosis--- taking half of the prescribed levodopa/carbidopa as she is worried about the medication/ doesn't like taking medication Personal Factors Other Personal Factors That May Effect Hx L breast CA Therapy/Recovery PT-OP-C Subjective Start: 07/11/21 12:32 Freq: Status: Active Protocol: Document 07/25/21 13:00 AMB (Rec: 07/25/21 15:32 AMB [id number]) OP-PT Subjective Patient Comments Patient Comments Ly reports she hasn't really done her exercises, but has been icing her arm. PT-OP-G Mobility & Gait Start: 07/20/21 11:16 Freq: Status: Active Protocol: Document 07/19/21 13:00 AMB (Rec: 07/20/21 13:37 AMB [id number]) OP Gait Assessment Comments Gait Comments Difficulty initiating movement with gait and transfers, worse on the right, small movement with first 1-3 steps then gait becomes more fluid PT-OP-H Neuro Start: 07/20/21 11:16 Freq: Status: Active Protocol: Document 07/19/21 13:00 AMB (Rec: 07/20/21 13:34 AMB [id number]) Muscle Tone Tone Assessment Upper Extremity Manifestations of Tone Resting Tremors Muscle Tone Comments bilateral in hands/arms-- pt reports L UE forearm pain PT-OP-J Posture/Palpation/Skin Start: 07/11/21 12:32 Freq: Status: Active Protocol: Document 07/19/21 13:00 AMB (Rec: 07/20/21 13:34 AMB [id number]) Posture Evaluation Comments Posture Comments moderate thoracic kyphosis, flat lumbar spine Palpation Assessment Location One Palpation Location R Low back Palpation Findings Soft Tissue Tightness Palpation Details Tenderness at right low back/ QL paraspinals PT-OP-K Range of Motion Start: 07/11/21 12:32 Freq: Status: Active Protocol: Document 07/19/21 13:00 AMB (Rec: 07/20/21 13:34 AMB [id number]) Lumbar Spine Range of Motion Lumbar Spine Active Degrees Testing Position Standing Flexion 40 Extension 25 Lateral Flexion Left 25 Lateral Flexion Right 10 ROM Limitations Pain PT-OP-M Strength Start: 07/11/21 12:32 Freq: Status: Active Protocol: Document 07/19/21 13:00 AMB (Rec: 07/20/21 13:34 AMB [id number]) Hip Strength Hip Manual Muscle Testing Right Flexion (L2) 4 Good Extension (S1) 4- Good- Left Flexion (L2) 4 Good Extension (S1) 4- Good- Knee Strength Knee Manual Muscle Testing Right Flexion (S2) 4 Good Extension (L3) 4 Good Left Flexion (S2) 4 Good Extension (L3) 4 Good Ankle/Foot Strength Ankle and Foot Manual Muscle Testing Right Dorsiflexion (L4) 4 Good Plantarflexion (S1) 3- Fair- Left Dorsiflexion (L4) 4 Good Plantarflexion (S1) 4 Good PT-OP-Q Treatments Start: 07/11/21 12:32 Freq: Status: Active Protocol: Document 07/25/21 13:00 AMB (Rec: 07/25/21 15:32 AMB [id number]) Therapeutic Exercises Standing Exercises squats Reps/Minutes 10 Comments cues for hips back Other Exercises donnell pose Reps/Minutes 30x2 quadruped UE flex Reps/Minutes 10 Comments cued TA engagement, posture cat cow Reps/Minutes 2x10 Therapeutic Activity Therapeutic Activity 1 Name loading/unloading retail wireless sales representative Reps/Minutes 10 min Comments avoiding bend lift twist, stepping and squating Neuro Re-Education Treatment Other Activities 1 Details BIG floor to ceiling Comments x5 heavy cues for posture PT-OP-T Assessment and Plan Start: 07/11/21 12:32 Freq: Status: Active Protocol: Document 07/25/21 13:00 AMB (Rec: 07/25/21 15:32 AMB [id number]) Physical Therapy Assessment Goals Two Impairment Gait Short Term Goal (STG) Roxanne will ambulate with good step length and improved trunk rotation for 6 minutes over smooth terrain. STG Duration 4 weeks One Impairment Lumbar flexion Short Term Goal (STG) Roxanne will improve her standing lumbar flexion to 50 degrees. STG Duration 4 weeks Preparation Supervisor Freezing Goal (LTG) Roxanne will wash dishes with good body mechanics and with pain of 3/10 or less. LTG Duration 8 weeks Assessment Summary Assessment HEP: thoracic sidebending, squats, child pose, cat cow. Pt encouraged to consider body mechanics to avoid bending twisting, carve out time during day for HEP, did well with floor transfer, but initiating movement is challenging, did start to discuss BIG program if pt interested. Physical Therapy Plan Next Visit Focus/Plan Next Note Type Treatment Note Next Visit Plan Reassess cat/cow, donnell pose, begin work on pec/hip flexor stretching and moving through full amplitude, review body mechanics of retail wireless sales representative loading- squat
--- NOTE | 2021-07-27 15:22 | PT.OTN ---
Current Diagnoses Other idiopathic scoliosis, thoracolumbar region (07/27/21) Dorsalgia, unspecified (07/27/21) Physical Therapy Treatment Note PT-OP-A Visit Information Start: 07/11/21 12:32 Freq: Status: Active Protocol: Document 07/27/21 13:03 AMB (Rec: 07/27/21 13:48 AMB [id number]) Out-Patient Physical Therapy Visit Information Visit Information Visit Type Treatment Note Visit Start Time 13:00 Visit Stop Time 13:45 Total Visit Minutes 45 Visit Number 3 PT-OP-B Current Condition Start: 07/11/21 12:32 Freq: Status: Active Protocol: Document 07/19/21 13:00 AMB (Rec: 07/19/21 13:54 AMB [id number]) Current Condition History of Current Condition Onset Date Last few years Current Complaints Right back pain History of Current Condition Roxanne attends PT for back pain associated with scoliosis and parkinsons disease. She reports that leaning over increases back pain, hasn't been hiking as much or exercising. She is tall (6') and so leaning over to cook or wash dishes is a big irritant for her back. She reports a feeling of right leg weakness. Started carbidopa/levodopa in January hasn't been falling since then but was before. L sided breast cancer history. Prior Treatments and Tests X-ray: 06/20/21: mild/moderate lumbar dextroscoliosis and trace thoracic levoscoliosis Treatment Goals Patient/Caregiver Goals Return to hiking/ wash dishes without back pain Prior Functional Status Baseline Function- ADL's Modified Independent Baseline Function- Mobility Modified Independent Current Functional Impairments (Reported) Functional Limitations- ADL's no longer driving, less active due to PD diagnosis--- taking half of the prescribed levodopa/carbidopa as she is worried about the medication/ doesn't like taking medication Personal Factors Other Personal Factors That May Effect Hx L breast CA Therapy/Recovery PT-OP-C Subjective Start: 07/11/21 12:32 Freq: Status: Active Protocol: Document 07/27/21 13:00 AMB (Rec: 07/27/21 15:22 AMB [id number]) OP-PT Subjective Patient Comments Patient Comments Roxanne reports she did her exercises this morning. PT-OP-G Mobility & Gait Start: 07/20/21 11:16 Freq: Status: Active Protocol: Document 07/19/21 13:00 AMB (Rec: 07/20/21 13:37 AMB [id number]) OP Gait Assessment Comments Gait Comments Difficulty initiating movement with gait and transfers, worse on the right, small movement with first 1-3 steps then gait becomes more fluid PT-OP-H Neuro Start: 07/20/21 11:16 Freq: Status: Active Protocol: Document 07/19/21 13:00 AMB (Rec: 07/20/21 13:34 AMB [id number]) Muscle Tone Tone Assessment Upper Extremity Manifestations of Tone Resting Tremors Muscle Tone Comments bilateral in hands/arms-- pt reports L UE forearm pain PT-OP-J Posture/Palpation/Skin Start: 07/11/21 12:32 Freq: Status: Active Protocol: Document 07/19/21 13:00 AMB (Rec: 07/20/21 13:34 AMB [id number]) Posture Evaluation Comments Posture Comments moderate thoracic kyphosis, flat lumbar spine Palpation Assessment Location One Palpation Location R Low back Palpation Findings Soft Tissue Tightness Palpation Details Tenderness at right low back/ QL paraspinals PT-OP-K Range of Motion Start: 07/11/21 12:32 Freq: Status: Active Protocol: Document 07/19/21 13:00 AMB (Rec: 07/20/21 13:34 AMB [id number]) Lumbar Spine Range of Motion Lumbar Spine Active Degrees Testing Position Standing Flexion 40 Extension 25 Lateral Flexion Left 25 Lateral Flexion Right 10 ROM Limitations Pain PT-OP-M Strength Start: 07/11/21 12:32 Freq: Status: Active Protocol: Document 07/19/21 13:00 AMB (Rec: 07/20/21 13:34 AMB [id number]) Hip Strength Hip Manual Muscle Testing Right Flexion (L2) 4 Good Extension (S1) 4- Good- Left Flexion (L2) 4 Good Extension (S1) 4- Good- Knee Strength Knee Manual Muscle Testing Right Flexion (S2) 4 Good Extension (L3) 4 Good Left Flexion (S2) 4 Good Extension (L3) 4 Good Ankle/Foot Strength Ankle and Foot Manual Muscle Testing Right Dorsiflexion (L4) 4 Good Plantarflexion (S1) 3- Fair- Left Dorsiflexion (L4) 4 Good Plantarflexion (S1) 4 Good PT-OP-Q Treatments Start: 07/11/21 12:32 Freq: Status: Active Protocol: Document 07/27/21 13:00 AMB (Rec: 07/27/21 15:22 AMB [id number]) Therapeutic Exercises Standing Exercises hamstring stretch Reps/Minutes 30x2 Comments hip hinge or at stair Other Exercises donnell pose Reps/Minutes 30x2 Comments added with lateral movement quadruped UE flex Reps/Minutes 10 Comments cued TA engagement, posture cat cow Reps/Minutes 2x10 Neuro Re-Education Treatment Other Activities 2 Details fwd/side backward stepping Comments challenged pt -mi backward PT-OP-T Assessment and Plan Start: 07/11/21 12:32 Freq: Status: Active Protocol: Document 07/27/21 13:00 AMB (Rec: 07/27/21 15:22 AMB [id number]) Physical Therapy Assessment Goals Two Impairment Gait Short Term Goal (STG) Roxanne will ambulate with good step length and improved trunk rotation for 6 minutes over smooth terrain. STG Duration 4 weeks One Impairment Lumbar flexion Short Term Goal (STG) Roxanne will improve her standing lumbar flexion to 50 degrees. STG Duration 4 weeks Floor Waxer Goal (LTG) Roxanne will wash dishes with good body mechanics and with pain of 3/10 or less. LTG Duration 8 weeks Assessment Summary Assessment HEP today was donnell pose wiht QL stretch and backward stepping, pt also interested in hamstring stretching, but will need follow up on form. Pt challenged by backward stepping, has a tendency to stop when challenged. Physical Therapy Plan Next Visit Focus/Plan Next Note Type Treatment Note Next Visit Plan Reassess cat/cow, donnell pose, begin work on pec/hip flexor stretching and moving through full amplitude, review body mechanics of assisted living home director loading- squat
--- NOTE | 2021-08-03 18:02 | PT.OTN ---
Current Diagnoses Other idiopathic scoliosis, thoracolumbar region (08/03/21) Dorsalgia, unspecified (08/03/21) Physical Therapy Treatment Note PT-OP-A Visit Information Start: 07/11/21 12:32 Freq: Status: Active Protocol: Document 08/03/21 13:39 MA (Rec: 08/03/21 18:02 MA [id number]) Out-Patient Physical Therapy Visit Information Visit Information Visit Type Treatment Note Visit Start Time 13:45 Visit Stop Time 14:40 Total Visit Minutes 50 Visit Number 4 Number of OPERATIONS MANAGER ASSISTANT Visits 1 PT-OP-B Current Condition Start: 07/11/21 12:32 Freq: Status: Active Protocol: Document 07/19/21 13:00 AMB (Rec: 07/19/21 13:54 AMB [id number]) Current Condition History of Current Condition Onset Date Last few years Current Complaints Right back pain History of Current Condition Roxanne attends PT for back pain associated with scoliosis and parkinsons disease. She reports that leaning over increases back pain, hasn't been hiking as much or exercising. She is tall (6') and so leaning over to cook or wash dishes is a big irritant for her back. She reports a feeling of right leg weakness. Started carbidopa/levodopa in January hasn't been falling since then but was before. L sided breast cancer history. Prior Treatments and Tests X-ray: 06/20/21: mild/moderate lumbar dextroscoliosis and trace thoracic levoscoliosis Treatment Goals Patient/Caregiver Goals Return to hiking/ wash dishes without back pain Prior Functional Status Baseline Function- ADL's Modified Independent Baseline Function- Mobility Modified Independent Current Functional Impairments (Reported) Functional Limitations- ADL's no longer driving, less active due to PD diagnosis--- taking half of the prescribed levodopa/carbidopa as she is worried about the medication/ doesn't like taking medication Personal Factors Other Personal Factors That May Effect Hx L breast CA Therapy/Recovery PT-OP-C Subjective Start: 07/11/21 12:32 Freq: Status: Active Protocol: Document 08/03/21 13:39 MA (Rec: 08/03/21 18:02 MA [id number]) OP-PT Subjective Patient Comments Patient Comments Pt has been having L arm pain. PT-OP-G Mobility & Gait Start: 07/20/21 11:16 Freq: Status: Active Protocol: Document 07/19/21 13:00 AMB (Rec: 07/20/21 13:37 AMB [id number]) OP Gait Assessment Comments Gait Comments Difficulty initiating movement with gait and transfers, worse on the right, small movement with first 1-3 steps then gait becomes more fluid PT-OP-H Neuro Start: 07/20/21 11:16 Freq: Status: Active Protocol: Document 07/19/21 13:00 AMB (Rec: 07/20/21 13:34 AMB [id number]) Muscle Tone Tone Assessment Upper Extremity Manifestations of Tone Resting Tremors Muscle Tone Comments bilateral in hands/arms-- pt reports L UE forearm pain PT-OP-J Posture/Palpation/Skin Start: 07/11/21 12:32 Freq: Status: Active Protocol: Document 07/19/21 13:00 AMB (Rec: 07/20/21 13:34 AMB [id number]) Posture Evaluation Comments Posture Comments moderate thoracic kyphosis, flat lumbar spine Palpation Assessment Location One Palpation Location R Low back Palpation Findings Soft Tissue Tightness Palpation Details Tenderness at right low back/ QL paraspinals PT-OP-K Range of Motion Start: 07/11/21 12:32 Freq: Status: Active Protocol: Document 07/19/21 13:00 AMB (Rec: 07/20/21 13:34 AMB [id number]) Lumbar Spine Range of Motion Lumbar Spine Active Degrees Testing Position Standing Flexion 40 Extension 25 Lateral Flexion Left 25 Lateral Flexion Right 10 ROM Limitations Pain PT-OP-M Strength Start: 07/11/21 12:32 Freq: Status: Active Protocol: Document 07/19/21 13:00 AMB (Rec: 07/20/21 13:34 AMB [id number]) Hip Strength Hip Manual Muscle Testing Right Flexion (L2) 4 Good Extension (S1) 4- Good- Left Flexion (L2) 4 Good Extension (S1) 4- Good- Knee Strength Knee Manual Muscle Testing Right Flexion (S2) 4 Good Extension (L3) 4 Good Left Flexion (S2) 4 Good Extension (L3) 4 Good Ankle/Foot Strength Ankle and Foot Manual Muscle Testing Right Dorsiflexion (L4) 4 Good Plantarflexion (S1) 3- Fair- Left Dorsiflexion (L4) 4 Good Plantarflexion (S1) 4 Good PT-OP-Q Treatments Start: 07/11/21 12:32 Freq: Status: Active Protocol: Document 08/03/21 13:39 MA (Rec: 08/03/21 18:02 MA [id number]) Therapeutic Exercises Other Exercises cat cow Reps/Minutes 10x Comments painful today on LUE Gait Training Gait Activity Walking Description fwd and backwards Device Used rail prn Surface even Distance/Duration 6x20 ft Treatment Focus increasing step height Comments 1. walking fwd increasing step height 2. walking backwards holding rail with cues for increasing step length 3. quick stops and turns with cues to take 3-4 steps to turn vs 10 Manual Therapy Treatment Soft Tissue Mobilization LUE Body Location L wrist extensors Mobilization Type Myofascial Release,Strumming, Sustained Pressure,Trigger Point Release Intensity/Depth Moderate Body Position Hooklying Self-Care/Home Management Treatment Education Caregiver Education Spent significant time with discussing parkinson's disease and pt's mental status as pt feels like a burden to her with new diagnosis. Educated huband on benefit of taking full medication dosage and on setting a more consistent therapy routine. Other Education Discussed with pt PD and the difference between what pt does vs what she thinks she does, such as her decreased step height. Educated pt on benefit of full dosage of medication. Discussed ways to manage LUE through massage and propping of LUE on pillow when seated to help relax muscles. PT-OP-T Assessment and Plan Start: 07/11/21 12:32 Freq: Status: Active Protocol: Document 08/03/21 13:39 MA (Rec: 08/03/21 18:02 MA [id number]) Physical Therapy Assessment Goals Two Impairment Gait Short Term Goal (STG) Roxanne will ambulate with good step length and improved trunk rotation for 6 minutes over smooth terrain. STG Duration 4 weeks One Impairment Lumbar flexion Short Term Goal (STG) Roxanne will improve her standing lumbar flexion to 50 degrees. STG Duration 4 weeks [facility] Goal (LTG) Roxanne will wash dishes with good body mechanics and with pain of 3/10 or less. LTG Duration 8 weeks Assessment Summary Assessment Spent significant amout of tx time today educating pt about parkinson's disease and importance of taking full dose of medication on a daily schedule as well as getting on a routine with coming to therapy and keeping up with HEP. Pt admits she feels like burden to her having to be driven around to appts and taken care of more at home . Spoke with spouse at end of session who is supportive of and would like to join in on some therapy sessions to be able to help pt more at home. is agreeable to scheduling 2x/wk with the possibility of joining the [facility] program if pt begins to feel more confident after several visits. Pt arrives this session with increased L forearm pain. Discussed how pain is caused by pt's tremor, not 'tennis elbow' like pt previously thought. Pain improves after STM to wrist extensors. She is more comfortable when LUE is propped on pillow for support during session. Discussed propping arm at home for comfort when sitting on couch. At end of session, pt is more accepting of idea of trying full dose of medication and 2x /wk for therapy to improve gait, balance, and reduce pain . Physical Therapy Plan Frequency and Duration Frequency of Treatment 2x/Week Duration of Treatment 8 weeks Plan of Care Start Date 07/20/21 Plan of Care End Date 09/14/21 Therapeutic Interventions Therapeutic Interventions Home Exercise Program,Joint Mobilizations,Manual Therapy, Neuromuscular Re-education, Self-Care/Home Management, Therapeutic Activities, Therapeutic Exercises Modalities Cold Pack/Ice Massage,Electric Stimulation,Hot Packs Next Visit Focus/Plan Next Note Type Treatment Note Next Visit Plan Reassess cat/cow, donnell pose, begin work on pec/hip flexor stretching and moving through full amplitude, review body mechanics of brand inspector loading- squat
--- NOTE | 2021-08-09 18:07 | PT.OTN ---
Current Diagnoses Other idiopathic scoliosis, thoracolumbar region (08/09/21) Dorsalgia, unspecified (08/09/21) Physical Therapy Treatment Note PT-OP-A Visit Information Start: 07/11/21 12:32 Freq: Status: Active Protocol: Document 08/09/21 14:28 MA (Rec: 08/09/21 15:23 MA [id number]) Out-Patient Physical Therapy Visit Information Visit Information Visit Type Treatment Note Visit Start Time 14:30 Visit Stop Time 15:20 Total Visit Minutes 50 Visit Number 5 Number of MARKETING TRAFFIC MANAGER Visits 2 PT-OP-B Current Condition Start: 07/11/21 12:32 Freq: Status: Active Protocol: Document 07/19/21 13:00 AMB (Rec: 07/19/21 13:54 AMB [id number]) Current Condition History of Current Condition Onset Date Last few years Current Complaints Right back pain History of Current Condition Roxanne attends PT for back pain associated with scoliosis and parkinsons disease. She reports that leaning over increases back pain, hasn't been hiking as much or exercising. She is tall (6') and so leaning over to cook or wash dishes is a big irritant for her back. She reports a feeling of right leg weakness. Started carbidopa/levodopa in January hasn't been falling since then but was before. L sided breast cancer history. Prior Treatments and Tests X-ray: 06/20/21: mild/moderate lumbar dextroscoliosis and trace thoracic levoscoliosis Treatment Goals Patient/Caregiver Goals Return to hiking/ wash dishes without back pain Prior Functional Status Baseline Function- ADL's Modified Independent Baseline Function- Mobility Modified Independent Current Functional Impairments (Reported) Functional Limitations- ADL's no longer driving, less active due to PD diagnosis--- taking half of the prescribed levodopa/carbidopa as she is worried about the medication/ doesn't like taking medication Personal Factors Other Personal Factors That May Effect Hx L breast CA Therapy/Recovery PT-OP-C Subjective Start: 07/11/21 12:32 Freq: Status: Active Protocol: Document 08/09/21 14:28 MA (Rec: 08/09/21 15:23 MA [id number]) OP-PT Subjective Patient Comments Patient Comments L arm is still hurting pt. She tried propping it up on pillows at home and only helped temorparily. PT-OP-G Mobility & Gait Start: 07/20/21 11:16 Freq: Status: Active Protocol: Document 07/19/21 13:00 AMB (Rec: 07/20/21 13:37 AMB [id number]) OP Gait Assessment Comments Gait Comments Difficulty initiating movement with gait and transfers, worse on the right, small movement with first 1-3 steps then gait becomes more fluid PT-OP-H Neuro Start: 07/20/21 11:16 Freq: Status: Active Protocol: Document 07/19/21 13:00 AMB (Rec: 07/20/21 13:34 AMB [id number]) Muscle Tone Tone Assessment Upper Extremity Manifestations of Tone Resting Tremors Muscle Tone Comments bilateral in hands/arms-- pt reports L UE forearm pain PT-OP-J Posture/Palpation/Skin Start: 07/11/21 12:32 Freq: Status: Active Protocol: Document 07/19/21 13:00 AMB (Rec: 07/20/21 13:34 AMB [id number]) Posture Evaluation Comments Posture Comments moderate thoracic kyphosis, flat lumbar spine Palpation Assessment Location One Palpation Location R Low back Palpation Findings Soft Tissue Tightness Palpation Details Tenderness at right low back/ QL paraspinals PT-OP-K Range of Motion Start: 07/11/21 12:32 Freq: Status: Active Protocol: Document 07/19/21 13:00 AMB (Rec: 07/20/21 13:34 AMB [id number]) Lumbar Spine Range of Motion Lumbar Spine Active Degrees Testing Position Standing Flexion 40 Extension 25 Lateral Flexion Left 25 Lateral Flexion Right 10 ROM Limitations Pain PT-OP-M Strength Start: 07/11/21 12:32 Freq: Status: Active Protocol: Document 07/19/21 13:00 AMB (Rec: 07/20/21 13:34 AMB [id number]) Hip Strength Hip Manual Muscle Testing Right Flexion (L2) 4 Good Extension (S1) 4- Good- Left Flexion (L2) 4 Good Extension (S1) 4- Good- Knee Strength Knee Manual Muscle Testing Right Flexion (S2) 4 Good Extension (L3) 4 Good Left Flexion (S2) 4 Good Extension (L3) 4 Good Ankle/Foot Strength Ankle and Foot Manual Muscle Testing Right Dorsiflexion (L4) 4 Good Plantarflexion (S1) 3- Fair- Left Dorsiflexion (L4) 4 Good Plantarflexion (S1) 4 Good PT-OP-Q Treatments Start: 07/11/21 12:32 Freq: Status: Active Protocol: Document 08/09/21 14:28 MA (Rec: 08/09/21 15:23 MA [id number]) Therapeutic Exercises Supine Exercises Pec Stretch Supine Exercise Name hands behind head Side bilateral Reps/Minutes 1' Comments added to HEP LTR Side bilateral Reps/Minutes 10x10 SH Comments added to HEP Standing Exercises Marching Side bilateral Equipment Used rail for balance Reps/Minutes x40 Comments added to HEP Pec stretch Standing Exercise Name corner pec stretch Side bilateral Reps/Minutes x1' Comments added to HEP Other Exercises Sit<>Stand Reps/Minutes 10x Comments cues for widening KAYA before standing, rocking and counting to 3 to stand Therapeutic Activity Therapeutic Activity Bed Mob Name Rolling Supine>SL>Supine Comments edu pt on using UE for momentum for easier time rolling Gait Training Gait Activity Walking Description fwd and turns Device Used rail prn Surface even Distance/Duration 6x20 ft Treatment Focus increasing step height Comments 1. walking fwd increasing step height 2. turning taking 4 steps vs 10 Manual Therapy Treatment Soft Tissue Mobilization Low Back Body Location R lumbar and thoracic paraspinals & QL LUE Body Location L wrist extensors Mobilization Type Myofascial Release,Strumming, Sustained Pressure,Trigger Point Release Intensity/Depth Moderate Body Position Hooklying Self-Care/Home Management Treatment Education Patient Education Home Exercise Program Other Education HEP: LTR, pec stretch in supine or in corner of room, standing marching PT-OP-T Assessment and Plan Start: 07/11/21 12:32 Freq: Status: Active Protocol: Document 08/09/21 14:28 MA (Rec: 08/09/21 15:23 MA [id number]) Physical Therapy Assessment Goals Two Impairment Gait Short Term Goal (STG) Roxanne will ambulate with good step length and improved trunk rotation for 6 minutes over smooth terrain. STG Duration 4 weeks One Impairment Lumbar flexion Short Term Goal (STG) Roxanne will improve her standing lumbar flexion to 50 degrees. STG Duration 4 weeks Long-Term Goal (LTG) Roxanne will wash dishes with good body mechanics and with pain of 3/10 or less. LTG Duration 8 weeks Assessment Summary Assessment Pt has R side LBP that improves after LTR exercise and STM to lumbar and thoracic paraspinals and R QL. Added LTR exercise to HEP for improving back pain/lumbar mobility along with pec stretch and standing marches. During gait, pt stands with increased kyphosis and walks with decreased step height and length. Worked on standing posture and stretching pecs to improve posture. Educated pt on rocking and counting to 3 during sit<>stands to avoid freezing along with widening her KAYA before standing to increase stability. Pt sits with decreased control during descent and often loses balance posteriorly causing increased back pain. Educated pt on importance of controlling descent at home when sitting on couch. Pt will continue to benefit from therapy for improving balance, stability, and flexibilty to decrease back pain and reduce fall risk associated with Parkinson's Disease. Physical Therapy Plan Frequency and Duration Frequency of Treatment 2x/Week Duration of Treatment 8 weeks Plan of Care Start Date 07/20/21 Plan of Care End Date 09/14/21 Therapeutic Interventions Therapeutic Interventions Home Exercise Program,Joint Mobilizations,Manual Therapy, Neuromuscular Re-education, Self-Care/Home Management, Therapeutic Activities, Therapeutic Exercises Modalities Cold Pack/Ice Massage,Electric Stimulation,Hot Packs Next Visit Focus/Plan Next Note Type Treatment Note Next Visit Plan Reassess HEP (cat/cow, donnell pose, pec stretch, LTR, standing marches), begin hip flexor stretching and moving through full amplitude. Work on sit<>stands.
--- NOTE | 2021-08-16 12:21 | PT.OTN ---
Current Diagnoses Other idiopathic scoliosis, thoracolumbar region (08/16/21) Dorsalgia, unspecified (08/16/21) Physical Therapy Treatment Note PT-OP-A Visit Information Start: 07/11/21 12:32 Freq: Status: Active Protocol: Document 08/16/21 11:11 MA (Rec: 08/16/21 12:21 MA [id number]) Out-Patient Physical Therapy Visit Information Visit Information Visit Type Treatment Note Visit Start Time 11:15 Visit Stop Time 12:00 Total Visit Minutes 45 Visit Number 6 Number of HEAVY MACHINERY OPERATOR Visits 3 PT-OP-B Current Condition Start: 07/11/21 12:32 Freq: Status: Active Protocol: Document 07/19/21 13:00 AMB (Rec: 07/19/21 13:54 AMB [id number]) Current Condition History of Current Condition Onset Date Last few years Current Complaints Right back pain History of Current Condition Roxanne attends PT for back pain associated with scoliosis and parkinsons disease. She reports that leaning over increases back pain, hasn't been hiking as much or exercising. She is tall (6') and so leaning over to cook or wash dishes is a big irritant for her back. She reports a feeling of right leg weakness. Started carbidopa/levodopa in January hasn't been falling since then but was before. L sided breast cancer history. Prior Treatments and Tests X-ray: 06/20/21: mild/moderate lumbar dextroscoliosis and trace thoracic levoscoliosis Treatment Goals Patient/Caregiver Goals Return to hiking/ wash dishes without back pain Prior Functional Status Baseline Function- ADL's Modified Independent Baseline Function- Mobility Modified Independent Current Functional Impairments (Reported) Functional Limitations- ADL's no longer driving, less active due to PD diagnosis--- taking half of the prescribed levodopa/carbidopa as she is worried about the medication/ doesn't like taking medication Personal Factors Other Personal Factors That May Effect Hx L breast CA Therapy/Recovery PT-OP-C Subjective Start: 07/11/21 12:32 Freq: Status: Active Protocol: Document 08/16/21 11:11 MA (Rec: 08/16/21 12:21 MA [id number]) OP-PT Subjective Patient Comments Patient Comments Pt has been doing half her HEP one day and half the next. PT-OP-G Mobility & Gait Start: 07/20/21 11:16 Freq: Status: Active Protocol: Document 07/19/21 13:00 AMB (Rec: 07/20/21 13:37 AMB [id number]) OP Gait Assessment Comments Gait Comments Difficulty initiating movement with gait and transfers, worse on the right, small movement with first 1-3 steps then gait becomes more fluid PT-OP-H Neuro Start: 07/20/21 11:16 Freq: Status: Active Protocol: Document 07/19/21 13:00 AMB (Rec: 07/20/21 13:34 AMB [id number]) Muscle Tone Tone Assessment Upper Extremity Manifestations of Tone Resting Tremors Muscle Tone Comments bilateral in hands/arms-- pt reports L UE forearm pain PT-OP-J Posture/Palpation/Skin Start: 07/11/21 12:32 Freq: Status: Active Protocol: Document 07/19/21 13:00 AMB (Rec: 07/20/21 13:34 AMB [id number]) Posture Evaluation Comments Posture Comments moderate thoracic kyphosis, flat lumbar spine Palpation Assessment Location One Palpation Location R Low back Palpation Findings Soft Tissue Tightness Palpation Details Tenderness at right low back/ QL paraspinals PT-OP-K Range of Motion Start: 07/11/21 12:32 Freq: Status: Active Protocol: Document 07/19/21 13:00 AMB (Rec: 07/20/21 13:34 AMB [id number]) Lumbar Spine Range of Motion Lumbar Spine Active Degrees Testing Position Standing Flexion 40 Extension 25 Lateral Flexion Left 25 Lateral Flexion Right 10 ROM Limitations Pain PT-OP-M Strength Start: 07/11/21 12:32 Freq: Status: Active Protocol: Document 07/19/21 13:00 AMB (Rec: 07/20/21 13:34 AMB [id number]) Hip Strength Hip Manual Muscle Testing Right Flexion (L2) 4 Good Extension (S1) 4- Good- Left Flexion (L2) 4 Good Extension (S1) 4- Good- Knee Strength Knee Manual Muscle Testing Right Flexion (S2) 4 Good Extension (L3) 4 Good Left Flexion (S2) 4 Good Extension (L3) 4 Good Ankle/Foot Strength Ankle and Foot Manual Muscle Testing Right Dorsiflexion (L4) 4 Good Plantarflexion (S1) 3- Fair- Left Dorsiflexion (L4) 4 Good Plantarflexion (S1) 4 Good PT-OP-Q Treatments Start: 07/11/21 12:32 Freq: Status: Active Protocol: Document 08/16/21 11:11 MA (Rec: 08/16/21 12:21 MA [id number]) Therapeutic Exercises Supine Exercises rigoberto stretch Side bilateral Reps/Minutes x2' ea Pec Stretch Supine Exercise Name hands behind head Side bilateral Reps/Minutes 1' Comments added to HEP LTR Side bilateral Reps/Minutes 10x10 SH Comments added to HEP Standing Exercises Marching Side bilateral Equipment Used rail for balance Reps/Minutes x40 Comments HEp Pec stretch Standing Exercise Name doorway pec stretch Side bilateral Reps/Minutes x2' Comments HEP Other Exercises Sit<>Stand Reps/Minutes 10x Comments cues for widening KAYA before standing, rocking and counting to 3 to stand donnell pose Reps/Minutes 30x2 Comments added with lateral movement cat cow Reps/Minutes 10x Gait Training Gait Activity Walking Description fwd, backwards, and turns Device Used rail prn Surface even Distance/Duration 6x20 ft Treatment Focus increasing step height Comments 1. walking fwd increasing step height 2. walking backwards increasing step length 3. turning taking 4 steps vs 10 Neuro Re-Education Treatment Other Activities Rock and Reach Reps/Duration x15 ea 1 Details BIG floor to ceiling Comments x5 heavy cues for posture PT-OP-T Assessment and Plan Start: 07/11/21 12:32 Freq: Status: Active Protocol: Document 08/16/21 11:11 MA (Rec: 08/16/21 12:21 MA [id number]) Physical Therapy Assessment Goals Two Impairment Gait Short Term Goal (STG) Roxanne will ambulate with good step length and improved trunk rotation for 6 minutes over smooth terrain. STG Duration 4 weeks One Impairment Lumbar flexion Short Term Goal (STG) Roxanne will improve her standing lumbar flexion to 50 degrees. STG Duration 4 weeks Helium Arc Welder Goal (LTG) Roxanne will wash dishes with good body mechanics and with pain of 3/10 or less. LTG Duration 8 weeks Assessment Summary Assessment Pt is able to increase step height with less lateral lean and LOB this session showing improved core stability. She can perform sit<>stands without needing to rock for momentum today and states she has had less back pain with all movements since starting therapy. She feels minor R LBP during Rigoberto stretch but pain improves when cued to use core and press low back against mat. Physical Therapy Plan Frequency and Duration Frequency of Treatment 2x/Week Duration of Treatment 8 weeks Plan of Care Start Date 07/20/21 Plan of Care End Date 09/14/21 Therapeutic Interventions Therapeutic Interventions Home Exercise Program,Joint Mobilizations,Manual Therapy, Neuromuscular Re-education, Self-Care/Home Management, Therapeutic Activities, Therapeutic Exercises Modalities Cold Pack/Ice Massage,Electric Stimulation,Hot Packs Next Visit Focus/Plan Next Note Type Treatment Note Next Visit Plan HEP (cat/cow, donnell pose, pec stretch, LTR, standing marches), begin hip flexor stretching and moving through full amplitude. Work on sit<> stands.
--- NOTE | 2021-09-14 16:00 | PT.OPPOC ---
Physical, Occupational & Speech Therapy At [facility] Current Diagnoses Parkinson's disease (09/14/21) Other idiopathic scoliosis, thoracolumbar region (09/14/21) Dorsalgia, unspecified (09/14/21) Visit Care Team Role Provider Type Naye Ventura DO Attending Provider Physician Family Provider Primary Care Provider Referring Provider Specialty: Family Practice Address: [address] [place] [address], [facility] [place], [address] Email: [email or web address] Plan Of Care PT-OP-T Assessment and Plan Start: 07/11/21 12:32 Freq: Status: Active Protocol: Document 09/14/21 13:02 AMB (Rec: 09/14/21 13:52 AMB [id number]) Physical Therapy Assessment Goals Two Impairment Gait Short Term Goal (STG) Roxanne will ambulate with good step length and improved trunk rotation for 6 minutes over smooth terrain. STG Duration 4 weeks- progress, needs to concentrate hard, changing direction difficult One Impairment Lumbar flexion Short Term Goal (STG) Roxanne will improve her standing lumbar flexion to 50 degrees. STG Duration 4 weeks Retirement Goal (LTG) Roxanne will wash dishes with good body mechanics and with pain of 3/10 or less. LTG Duration - needs rest breaks every few minutes Assessment Summary Assessment Roxanne continues to be hesitant about coming to PT frequently. Wants to avoid being burdensome on . Back pain continues. Improving awareness of posture and PD's influential role in posture and pain. Hasn't been keeping up with HEP, did review with pt. Pt needs to work on coming to terms with diagnosis, and then PT would be very helpful for her. She does know she needs to be more consistent with PT exercises for them to make a better impact. Physical Therapy Plan Frequency and Duration Frequency of Treatment 1x/Week Duration of Treatment 12 weeks Plan of Care Start Date 09/14/21 Plan of Care End Date 12/07/21 Therapeutic Interventions Therapeutic Interventions Balance Training,Gait Training ,Home Exercise Program,Manual Therapy,Neuromuscular Re- education,Self-Care/Home Management,Therapeutic Activities,Therapeutic Exercises Next Visit Focus/Plan Next Note Type Treatment Note Next Visit Plan Continue to progress body mechanics/ activity to reduce back pain, review consistency with HEP Plan of Care Dates Plan of Care Start Date 09/14/21 Plan of Care End Date 12/07/21 Electronically Signed by: Kellen Templeton, ANNETTE 09/17/21 [id number] If you are in agreement with this Plan of Care, please return a signed and dated copy. I have reviewed this Plan of Care and certify that the skilled therapy services above are required to meet the patient?s needs. Physician Signature Date Printed Name and Credentials Clinical Instructor Signature Printed Name and Credentials
--- NOTE | 2021-09-14 16:00 | PT.OTN ---
Current Diagnoses Parkinson's disease (09/14/21) Other idiopathic scoliosis, thoracolumbar region (09/14/21) Dorsalgia, unspecified (09/14/21) Physical Therapy Treatment Note PT-OP-A Visit Information Start: 07/11/21 12:32 Freq: Status: Active Protocol: Document 09/14/21 13:02 AMB (Rec: 09/14/21 13:52 AMB [id number]) Out-Patient Physical Therapy Visit Information Visit Information Visit Type Progress Note Visit Start Time 13:00 Visit Stop Time 13:45 Total Visit Minutes 45 Visit Number 7 Number of GLASS SANDER Visits 0 PT-OP-B Current Condition Start: 07/11/21 12:32 Freq: Status: Active Protocol: Document 07/19/21 13:00 AMB (Rec: 07/19/21 13:54 AMB [id number]) Current Condition History of Current Condition Onset Date Last few years Current Complaints Right back pain History of Current Condition Roxanne attends PT for back pain associated with scoliosis and parkinsons disease. She reports that leaning over increases back pain, hasn't been hiking as much or exercising. She is tall (6') and so leaning over to cook or wash dishes is a big irritant for her back. She reports a feeling of right leg weakness. Started carbidopa/levodopa in January hasn't been falling since then but was before. L sided breast cancer history. Prior Treatments and Tests X-ray: 06/20/21: mild/moderate lumbar dextroscoliosis and trace thoracic levoscoliosis Treatment Goals Patient/Caregiver Goals Return to hiking/ wash dishes without back pain Prior Functional Status Baseline Function- ADL's Modified Independent Baseline Function- Mobility Modified Independent Current Functional Impairments (Reported) Functional Limitations- ADL's no longer driving, less active due to PD diagnosis--- taking half of the prescribed levodopa/carbidopa as she is worried about the medication/ doesn't like taking medication Personal Factors Other Personal Factors That May Effect Hx L breast CA Therapy/Recovery PT-OP-C Subjective Start: 07/11/21 12:32 Freq: Status: Active Protocol: Document 09/14/21 13:00 AMB (Rec: 09/17/21 10:56 AMB [id number]) OP-PT Subjective Patient Comments Patient Comments Roxanne reports continued back pain with loading dishes. Still feels best when hiking. Is still taking less sinemet than prescribed. PT-OP-G Mobility & Gait Start: 07/20/21 11:16 Freq: Status: Active Protocol: Document 07/19/21 13:00 AMB (Rec: 07/20/21 13:37 AMB [id number]) OP Gait Assessment Comments Gait Comments Difficulty initiating movement with gait and transfers, worse on the right, small movement with first 1-3 steps then gait becomes more fluid PT-OP-H Neuro Start: 07/20/21 11:16 Freq: Status: Active Protocol: Document 07/19/21 13:00 AMB (Rec: 07/20/21 13:34 AMB [id number]) Muscle Tone Tone Assessment Upper Extremity Manifestations of Tone Resting Tremors Muscle Tone Comments bilateral in hands/arms-- pt reports L UE forearm pain PT-OP-J Posture/Palpation/Skin Start: 07/11/21 12:32 Freq: Status: Active Protocol: Document 07/19/21 13:00 AMB (Rec: 07/20/21 13:34 AMB [id number]) Posture Evaluation Comments Posture Comments moderate thoracic kyphosis, flat lumbar spine Palpation Assessment Location One Palpation Location R Low back Palpation Findings Soft Tissue Tightness Palpation Details Tenderness at right low back/ QL paraspinals PT-OP-K Range of Motion Start: 07/11/21 12:32 Freq: Status: Active Protocol: Document 07/19/21 13:00 AMB (Rec: 07/20/21 13:34 AMB [id number]) Lumbar Spine Range of Motion Lumbar Spine Active Degrees Testing Position Standing Flexion 40 Extension 25 Lateral Flexion Left 25 Lateral Flexion Right 10 ROM Limitations Pain PT-OP-M Strength Start: 07/11/21 12:32 Freq: Status: Active Protocol: Document 07/19/21 13:00 AMB (Rec: 07/20/21 13:34 AMB [id number]) Hip Strength Hip Manual Muscle Testing Right Flexion (L2) 4 Good Extension (S1) 4- Good- Left Flexion (L2) 4 Good Extension (S1) 4- Good- Knee Strength Knee Manual Muscle Testing Right Flexion (S2) 4 Good Extension (L3) 4 Good Left Flexion (S2) 4 Good Extension (L3) 4 Good Ankle/Foot Strength Ankle and Foot Manual Muscle Testing Right Dorsiflexion (L4) 4 Good Plantarflexion (S1) 3- Fair- Left Dorsiflexion (L4) 4 Good Plantarflexion (S1) 4 Good PT-OP-Q Treatments Start: 07/11/21 12:32 Freq: Status: Active Protocol: Document 09/14/21 13:00 AMB (Rec: 09/17/21 10:56 AMB [id number]) Therapeutic Exercises Other Exercises Sit<>Stand Reps/Minutes 10x Comments cues for widening KAYA before standing, rocking and counting to 3 to stand donnell pose Reps/Minutes 30x2 Comments added with lateral movement Gait Training Gait Activity Walking Description fwd, backwards, and turns Device Used rail prn Surface even Distance/Duration 6x20 ft Treatment Focus increasing step height Comments 1. walking fwd increasing step height 2. walking backwards increasing step length 3. turning taking 4 steps vs 10 Neuro Re-Education Treatment Other Activities Rock and Reach Reps/Duration x15 ea 1 Details BIG floor to ceiling Comments x5 heavy cues for posture PT-OP-T Assessment and Plan Start: 07/11/21 12:32 Freq: Status: Active Protocol: Document 09/14/21 13:02 AMB (Rec: 09/14/21 13:52 AMB [id number]) Physical Therapy Assessment Goals Two Impairment Gait Short Term Goal (STG) Roxanne will ambulate with good step length and improved trunk rotation for 6 minutes over smooth terrain. STG Duration 4 weeks- progress, needs to concentrate hard, changing direction difficult One Impairment Lumbar flexion Short Term Goal (STG) Roxanne will improve her standing lumbar flexion to 50 degrees. STG Duration 4 weeks Uniform Room Attendant Goal (LTG) Roxanne will wash dishes with good body mechanics and with pain of 3/10 or less. LTG Duration - needs rest breaks every few minutes Assessment Summary Assessment Roxanne continues to be hesitant about coming to PT frequently. Wants to avoid being burdensome on . Back pain continues. Improving awareness of posture and PD's influential role in posture and pain. Hasn't been keeping up with HEP, did review with pt. Pt needs to work on coming to terms with diagnosis, and then PT would be very helpful for her. She does know she needs to be more consistent with PT exercises for them to make a better impact. Physical Therapy Plan Frequency and Duration Frequency of Treatment 1x/Week Duration of Treatment 12 weeks Plan of Care Start Date 09/14/21 Plan of Care End Date 08/25/22 Therapeutic Interventions Therapeutic Interventions Balance Training,Gait Training ,Home Exercise Program,Manual Therapy,Neuromuscular Re- education,Self-Care/Home Management,Therapeutic Activities,Therapeutic Exercises Next Visit Focus/Plan Next Note Type Treatment Note Next Visit Plan Continue to progress body mechanics/ activity to reduce back pain, review consistency with HEP
--- NOTE | 2021-11-02 08:15 | PT.OPDS ---
Current Diagnoses Parkinson's disease (09/14/21) Other idiopathic scoliosis, thoracolumbar region (09/14/21) Dorsalgia, unspecified (09/14/21) Visit Care Team Role Provider Type Naye Ventura DO Attending Provider Physician Family Provider Primary Care Provider Referring Provider Specialty: Family Practice Address: [address] [place] [address], [id number] Email: [email or web address] Visit Number Visit Number 7 Discharge Summary PT-OP-B Current Condition Start: 07/11/21 12:32 Freq: Status: Active Protocol: Document 07/19/21 13:00 AMB (Rec: 07/19/21 13:54 AMB [id number]) Current Condition History of Current Condition Onset Date Last few years Current Complaints Right back pain History of Current Condition Roxanne attends PT for back pain associated with scoliosis and parkinsons disease. She reports that leaning over increases back pain, hasn't been hiking as much or exercising. She is tall (6') and so leaning over to cook or wash dishes is a big irritant for her back. She reports a feeling of right leg weakness. Started carbidopa/levodopa in January hasn't been falling since then but was before. L sided breast cancer history. Prior Treatments and Tests X-ray: 06/20/21: mild/moderate lumbar dextroscoliosis and trace thoracic levoscoliosis Treatment Goals Patient/Caregiver Goals Return to hiking/ wash dishes without back pain Prior Functional Status Baseline Function- ADL's Modified Independent Baseline Function- Mobility Modified Independent Current Functional Impairments (Reported) Functional Limitations- ADL's no longer driving, less active due to PD diagnosis--- taking half of the prescribed levodopa/carbidopa as she is worried about the medication/ doesn't like taking medication Personal Factors Other Personal Factors That May Effect Hx L breast CA Therapy/Recovery PT-OP-C Subjective Start: 07/11/21 12:32 Freq: Status: Active Protocol: Document 09/14/21 13:00 AMB (Rec: 09/17/21 10:56 AMB [id number]) OP-PT Subjective Patient Comments Patient Comments Roxanne reports continued back pain with loading dishes. Still feels best when hiking. Is still taking less sinemet than prescribed. PT-OP-G Mobility & Gait Start: 07/20/21 11:16 Freq: Status: Active Protocol: Document 07/19/21 13:00 AMB (Rec: 07/20/21 13:37 AMB [id number]) OP Gait Assessment Comments Gait Comments Difficulty initiating movement with gait and transfers, worse on the right, small movement with first 1-3 steps then gait becomes more fluid PT-OP-H Neuro Start: 07/20/21 11:16 Freq: Status: Active Protocol: Document 07/19/21 13:00 AMB (Rec: 07/20/21 13:34 AMB [id number]) Muscle Tone Tone Assessment Upper Extremity Manifestations of Tone Resting Tremors Muscle Tone Comments bilateral in hands/arms-- pt reports L UE forearm pain PT-OP-J Posture/Palpation/Skin Start: 07/11/21 12:32 Freq: Status: Active Protocol: Document 07/19/21 13:00 AMB (Rec: 07/20/21 13:34 AMB [id number]) Posture Evaluation Comments Posture Comments moderate thoracic kyphosis, flat lumbar spine Palpation Assessment Location One Palpation Location R Low back Palpation Findings Soft Tissue Tightness Palpation Details Tenderness at right low back/ QL paraspinals PT-OP-K Range of Motion Start: 07/11/21 12:32 Freq: Status: Active Protocol: Document 07/19/21 13:00 AMB (Rec: 07/20/21 13:34 AMB [id number]) Lumbar Spine Range of Motion Lumbar Spine Active Degrees Testing Position Standing Flexion 40 Extension 25 Lateral Flexion Left 25 Lateral Flexion Right 10 ROM Limitations Pain PT-OP-M Strength Start: 07/11/21 12:32 Freq: Status: Active Protocol: Document 07/19/21 13:00 AMB (Rec: 07/20/21 13:34 AMB [id number]) Hip Strength Hip Manual Muscle Testing Right Flexion (L2) 4 Good Extension (S1) 4- Good- Left Flexion (L2) 4 Good Extension (S1) 4- Good- Knee Strength Knee Manual Muscle Testing Right Flexion (S2) 4 Good Extension (L3) 4 Good Left Flexion (S2) 4 Good Extension (L3) 4 Good Ankle/Foot Strength Ankle and Foot Manual Muscle Testing Right Dorsiflexion (L4) 4 Good Plantarflexion (S1) 3- Fair- Left Dorsiflexion (L4) 4 Good Plantarflexion (S1) 4 Good PT-OP-T Assessment and Plan Start: 07/11/21 12:32 Freq: Status: Active Protocol: Document 11/02/21 08:12 AMB (Rec: 11/02/21 08:15 AMB [id number]) Physical Therapy Assessment Goals Two Impairment Gait Short Term Goal (STG) Roxanne will ambulate with good step length and improved trunk rotation for 6 minutes over smooth terrain. STG Duration 4 weeks- progress, needs to concentrate hard, changing direction difficult One Impairment Lumbar flexion Short Term Goal (STG) Roxanne will improve her standing lumbar flexion to 50 degrees. STG Duration 4 weeks Ornament Stapler Goal (LTG) Roxanne will wash dishes with good body mechanics and with pain of 3/10 or less. LTG Duration - needs rest breaks every few minutes Assessment Summary Assessment Pt canceled her last appointment because she wasn't feeling better, that was 2 months ago, and she has not called to follow up, therefore she is discharged at this time. She would benefit from further physical therapy, but likely needs to come to terms with her Parkinson's Disease diagnosis before she would really have the most benefit. Physical Therapy Plan Discharge Physical Therapy Discharge Reasons No Longer Attending PT
== END 2021-11-06 14:30 ==
LOC: PHYS 13:00
PROVIDERS: Family Provider Family Medicine; PCP Family Medicine; Referring Provider Family Medicine; Visit Provider Family Medicine
DX: M41.25 Other idiopathic scoliosis, thoracolumbar region (principal); M54.9 Dorsalgia, unspecified; G20 Parkinson's disease
CPT/HCPCS: 97110; 97112; 97116; 97140; 97162; 97530; 97535

== ENCOUNTER → 2021-09-16 12:23 | Outpatient (CLI) | payer MEDICARE, OTHER, SELFPAY ==
--- NOTE | 2021-09-16 | DI.MRI.S_ITS ---
PROCEDURE: MR HEAD/BRAIN WO CON INDICATIONS: Parkinson's disease/Repeated falls TECHNIQUE: Non-contrast axial T1 spin echo, axial T2 fast spin echo, sagittal and axial FLAIR, coronal T2 fast spin echo, axial gradient echo, axial diffusion and ADC through the brain. COMPARISON: None. FINDINGS: Image quality: Excellent. CSF spaces: Ventricles appear symmetric in size and shape. Basal cisterns are patent. No extra-axial fluid collections. Brain: No intracranial bleeds or mass effects. There is cerebral volume loss for age. There are periventricular and deep white matter chronic small vessel ischemic changes. Brainstem appears normal. Diffusion-weighted images show no acute ischemic insults. No chronic ischemic insults. Normal intravascular flow voids are present. Skull and face: Calvarial bone marrow is normal in signal. Orbits are normal. Sinuses: Sinuses and mastoids are clear. IMPRESSION: No acute intracranial disease process. No abnormal intracranial mass or mass effect. No areas of encephalomalacia. No intracranial hemorrhage. Dictated by: Tali Chu MD, PhD on 09/18/2021 at 10:17 Approved by: Tali Chu MD, PhD on 09/18/2021 at 10:20
== END ==
PROVIDERS: Family Provider Family Medicine; PCP Family Medicine; Referring Provider Psychiatry & Neurology Neurology; Visit Provider Psychiatry & Neurology Neurology
DX: G20 Parkinson's disease (principal); R29.6 Repeated falls; R26.89 Other abnormalities of gait and mobility; S09.90XA Unspecified injury of head, initial encounter
CPT/HCPCS: 70551

== ENCOUNTER → 2022-01-26 14:32 | Outpatient (CLI) | payer MEDICARE, OTHER, SELFPAY | PROVIDERS: Family Provider Family Medicine; PCP Family Medicine; Referring Provider Family Medicine; Visit Provider Family Medicine | DX: T14.8XXA Other injury of unspecified body region, initial encounter (principal); W57.XXXA Bitten or stung by nonvenomous insect and other nonvenomous arthropods, initial encounter | CPT/HCPCS: 36415; 86617 ==

== ENCOUNTER → 2022-09-17 15:48 | Outpatient (CLI) | payer MEDICARE, OTHER, SELFPAY ==
--- NOTE | 2022-09-17 15:49 | DI.MRI.S_ITS ---
PROCEDURE: MR LUMBAR SPINE WO CON INDICATIONS: Abnormal reflex TECHNIQUE: Noncontrast sagittal T1 spin echo and T2 fast echo, sagittal STIR, and T2 fast spin echo through the lumbar spine. In cases with scoliosis, additional coronal T2 fast spin echo may be performed. COMPARISON: None. FINDINGS: Image quality: Excellent. Alignment and Curvature: There is normal bony alignment. Bone Marrow: Marrow is of normal overall signal. No acute vertebral body compression fractures. Spinal Cord: Conus medullaris terminates at the L1 level. Visualized cord demonstrates normal signal and size. Paraspinous Soft Tissues: And small right L3-4 and sacral perineural cyst present. T12-L1: Normal appearance. L1-L2: Disc space narrowing with posterior disc bulge. No central or foraminal stenosis L2-L3: Disc space narrowing and circumferential disc bulge without central or foraminal stenosis L3-L4: Disc space narrowing and circumferential disc bulge results in mild central stenosis. Moderate left and no right foraminal stenosis L4-L5: Disc space narrowing and circumferential disc bulge with hypertrophic facet joints present. Mild to moderate central stenosis. No foraminal stenosis L5-S1: Disc space is maintained. No central or foraminal stenosis. IMPRESSION: Multilevel degenerative disc disease and arthropathy results in varying degrees of central and foraminal stenosis including mild to moderate central stenosis L4-5 and moderate left foraminal stenosis L3-4 Approved by: Edson Drummond M.D. on 09/17/2022 at 17:33
--- NOTE | 2022-09-17 15:50 | DI.MRI.S_ITS ---
PROCEDURE: MR CERVICAL SPINE WO CON INDICATIONS: Abnormal reflex TECHNIQUE: Noncontrast sagittal T1 spin echo and T2 fast spin echo, sagittal STIR, foraminal oblique sagittal T2 fast spin echo, and axial gradient echo or T2 fast spin echo through the cervical spine. COMPARISON: None. FINDINGS: Image quality: Excellent. Alignment and Curvature: Grade 1 anterior spondylolisthesis C4-5 Bone Marrow: Marrow demonstrates normal overall signal. Spinal Cord: Visualized spinal cord has normal size and signal. No cerebellar tonsillar herniation. Paraspinous Soft Tissues: Perineural cysts noted at C5-6, C6-7 and C7-T1 bilaterally with minimal foraminal remodeling. C2-C3: Normal appearance. C3-C4: Normal appearance. C4-C5: Posterior disc osteophyte complex results in [id number] central stenosis. No foraminal stenosis C5-C6: Disc space narrowing posterior disc osteophyte complex results in moderate central stenosis with flattening the ventral surface of the cord. No foraminal stenosis. C6-C7: Disc space narrowing with posterior disc osteophyte complex. Mild central stenosis. No foraminal stenosis. C7-T1: Normal appearance. IMPRESSION: Multilevel degenerative disc disease and arthropathy results in moderate central stenosis C5-6. Multilevel perineural cysts noted in the lower cervical spine with mild remodeling of the foramina Approved by: Edson Drummond M.D. on 09/17/2022 at 17:29
--- NOTE | 2022-09-17 15:50 | DI.MRI.S_ITS ---
PROCEDURE: MR THORACIC SPINE WO CON INDICATIONS: Abnormal reflex TECHNIQUE: Noncontrast sagittal T1 spine echo and T2 fast spin echo, sagittal STIR, and T2 fast spin echo through the thoracic spine. COMPARISON: None. FINDINGS: Image quality: Excellent. Alignment and Curvature: There is normal bony alignment. Bone Marrow: Marrow is of normal overall signal. No acute vertebral body compression fractures. Spinal Cord: Visualized spinal cord is normal in size and signal. Paraspinous Soft Tissues: No paravertebral masses. Miscellaneous: Large left perineural cyst at T1-2 measures 1.7 x 2.0 cm shows minimal remodeling of the neural foramen. Smaller perineal cyst in the left at T3-4 without remodeling IMPRESSION: No disc bulge or canal stenosis. Incidental left T1-2 perineural cyst with mild remodeling of the neural foramina Approved by: Edson Drummond M.D. on 09/17/2022 at 17:41
== END ==
PROVIDERS: Family Provider Family Medicine; PCP Family Medicine; Referring Provider Psychiatry & Neurology Neuromuscular Medicine; Visit Provider Psychiatry & Neurology Neuromuscular Medicine
DX: M50.321 Other cervical disc degeneration at C4-C5 level (principal); M47.812 Spondylosis without myelopathy or radiculopathy, cervical region; M48.02 Spinal stenosis, cervical region; M43.12 Spondylolisthesis, cervical region; G96.191 Perineural cyst; R29.2 Abnormal reflex
CPT/HCPCS: 72141; 72146; 72148

== ENCOUNTER 2022-10-17 20:59 | Emergency (ER) | payer MEDICARE, OTHER, SELFPAY ==
[2022-10-17 21:51] VITALS: BP 149/80; PULSE 72; RESP 18; TEMP 36.6; O2SAT 100; BMI 21.7
--- NOTE | 2022-10-17 22:01 | DI.RAD.S_ITS ---
PROCEDURE: XR KNEE RT 3V INDICATIONS: fell,pain and contusion TECHNIQUE: 3 views of the knee were acquired. COMPARISON: None. FINDINGS: Bones: There is a mildly displaced patellar fracture laterally. No dislocation. Soft tissues: There is a moderate joint effusion with a lipohemarthrosis. No suspicious soft tissue calcifications. IMPRESSION: 1. Mildly displaced patellar fracture. 2. Moderate joint effusion with a lipohemarthrosis. Dictated by: Eyad Fortune M.D. on 10/18/2022 at 0:19 Approved by: Eyad Fortune M.D. on 10/18/2022 at 0:20
--- NOTE | 2022-10-18 00:48 | ED_ITS ---
HPI - Extremity Injury (Lower) General Chief Complaint: Trauma Stated Complaint: fall, rt knee injury Time Seen by Provider: 10/18/22 00:46 Source: patient Mode of arrival: Wheelchair History of Present Illness HPI Narrative: Patient is a 66-year-old female history of hypothyroid Parkinson's presenting today with right knee pain. She reports that they had put the dog to sleep this morning and then they went for a walk in the dog park afterwards when she tripped and fell. She landed on her right knee and her face. She did not hit her head or lose consciousness. She is no neck pain she is complaining of some bilateral jaw tightening but has quite a bit of Parkinson's shakes. She is able to ambulate however it is quite painful. No numbness tingling or weakness Related Data Previous Rx's Medication Instructions Recorded Disability parking permit #1 ea 11/24/21 thyroid (pork) 30 mg tablet 30 mg PO DAILY #90 tabs 02/19/22 hydrocodone 5 mg-acetaminophen 325 1 tab PO Q6H PRN pain #10 tabs 10/18/22 mg tablet Allergies Allergy/AdvReac Type Severity Reaction Status Date / Time No Known Drug Allergies Allergy Verified 09/05/20 13:18 Review of Systems Review of Systems ROS Unobtainable: All systems reviewed & are unremarkable except as noted in HPI and below Patient History Medical History (Updated 10/18/22 @ 01:11 by Karen Dominguez DO) Hypothyroidism Parkinsons disease (~2009) Scoliosis Surgical History History of lumpectomy of left breast (~09/2011) Family History Father No problems noted. Mother No problems noted. Social History marital status: number of children: 2 household members: spouse lives independently: Yes pets and animals: Yes education level: college occupational status: other (Artist) Smoking Status: Never smoker alcohol intake: current (1-3 A WEEK ) substance use type: does not use during the past year weight has: remained stable well-balanced diet: daily or most days daily servings fruits/ve or more times/day caffeine: Yes eating out: 1-3 times/week Type(s) of exercise: other (hiking, Parkinson's Disease exercise daily) frequency: 3-4 times per week duration: 60-90 minutes/day Smoking Status: Never smoker alcohol intake frequency: 0-2 drinks per day Alcohol type: wine Substance Use Type: does not use Exam Initial Vital Signs Initial Vital Signs: Vital Signs Temperature 98 F 10/17/22 21:51 Pulse Rate 72 10/17/22 21:51 Respiratory Rate 18 10/17/22 21:51 Blood Pressure 149/80 H 10/17/22 21:51 Pulse Oximetry 100 10/17/22 21:51 Oxygen Delivery Method Room Air 10/17/22 21:51 GENERAL: Alert 66-year-old female with parkinsonian tremors HEAD: Atraumatic no depressions crepitations step-offs, small abrasion right face near the nose nose is non deformed minimal abrasion NECK: No vertebral tenderness no step-offs full range of motion CARDIOVASCULAR: peripheral pulses in tact, cap refill <2 sec RESPIRATORY: No respiratory distress, speaks in full sentences without difficulty EXTREMITIES: Normal range of motion, no clubbing or edema. Neurovascularly intact. Pelvis stable ambulatory in the ED Knee abrasion mildly swollen able to flex distal pedal pulse intact NEUROLOGICAL: Cranial nerves II through XII grossly intact. Normal gait and speech. SKIN: Warm, dry, no petechiae, no rashes or lesions. Course Orders Ordered: ED Orders 10/17/22 22:01 XR knee RT 3V Stat Discontinued Medications Acetaminophen (Acetaminophen 325 Mg Tablet) 650 mg PO NOW ONE Stop: 10/18/22 00:58 Last Admin: 10/18/22 01:30 Dose: 650 mg Documented By: FRANCES Oxycodone/Acetaminophen (Oxycodone/Apap 5/325 Prepack) 1 bottle MISC SEEINSTR ONE Stop: 10/18/22 01:49 Last Admin: 10/18/22 01:52 Dose: 1 bottle Documented By: DAYA Vital Signs Vital signs: Vital Signs - 8 hr 10/17/22 21:51 Temperature 98 F Pulse Rate 72 Respiratory Rate 18 Blood Pressure 149/80 H Pulse Oximetry 100 Oxygen Delivery Method Room Air MDM - Extremity Injury (Lower) Imaging Data Extremity x-ray #1: Radiologist's Impression: PROCEDURE:? XR KNEE RT 3V ? INDICATIONS:? fell,pain and contusion ? TECHNIQUE:? 3 views of the knee were acquired.? ? COMPARISON:? None. ? FINDINGS:? ? Bones:? There is a mildly displaced patellar fracture laterally.? No dislocation. ? Soft tissues:? There is a moderate joint effusion with a lipohemarthrosis.? No suspicious soft tissue calcifications.? ? ? IMPRESSION:? ? 1. Mildly displaced patellar fracture. ? 2. Moderate joint effusion with a lipohemarthrosis. ? ? Dictated by: Eyad Fortune M.D. on 10/18/2022 at 0:19 ? ? MDM Narrative Medical decision making narrative: Patient 66-year-old female presents today after fall with right knee pain. She does have some minor head injury but no sign of ongoing signs of intracranial he morrhage. He is not having any nausea vomiting numbness weakness and antiplatelet her coagulation medication. No need for head CT at this time. Very minor patellar fracture she is put in a knee immobilizer given a walker. She is ambulated the restroom it is doing well. Discussed pain control at home with her she is reluctant today can opiate agrees to have some in case the pain is too bad. Discharge Plan Departure Patient Disposition: Home Clinical Impression: Fracture, patella Instructions: DI for Patella Fracture Activity Restrictions/Additional Instructions: *You have been diagnosed with right patella fracture *What to do: Wear knee immobilizer use walker elevate and ice. I suspect this will heal without surgery however please confirm with orthopedic *Continue to take medications as directed Tylenol 650 mg every 4-6 hours if needed for [id number] pain [place] 1 tablet every 6 hours if needed for severe pain (you may break in half if needed) *Follow up with your primary care provider in 2-3 days or call [phone] Call orthopedics tomorrow to schedule follow-up appointment *Return to ER if you should have increased pain swelling redness or any new, worsening or concerning symptoms CONTROLLED SUBSTANCE DISCHARGE (Narcotoic/benzodiazepine/Flexeril/Phenergan) 1. You have been prescribed narcotic medications, it does have acetaminophen/Tylenol/paracetamol in it, DO NOT TAKE MORE THAN 4,00mg in 24 hours of Tylenol. TRAMADOL DOES NOT CONTAIN TYLENOL 2. Please understand that we cannot provide further refills of narcotics, benzodiazepines or controlled substances through the ED and her pain management will need to be through your provider. 3. While on these medications you cannot drive or operate heavy machinery. 4. You cannot sign legal documents or perform any duties such as this. 5. As long as you're taking opiate pain medications he should also be taking a stool softener such as Colace, Dulcolax, MiraLAX or prune juice, to help avoid constipation. Prescriptions: New hydrocodone-acetaminophen 5-325 mg tablet 1 tab PO Q6H PRN (Reason: pain) Qty: 10 0RF No Action (DME) Disability parking permit See Rx Instructions .Route .MEDSUPPLY Qty: 1 0RF Rx Instructions: Patient is medically disabled and would benefit from a disabled parking permit thyroid (pork) 30 mg tablet 30 mg PO DAILY Qty: 90 3RF Referrals: Johnny Rollins DO [Primary Care Provider] - Stand Alone Forms: Patient Portal/API
[2022-10-18] MEDS: ACETAMINOPHEN 325 MG TABLET 650 MG PO (01:30)
[2022-10-18] MEDS: OXYCODONE/APAP 5/325 PREPACK 1 BOTTLE MISC (01:52)
== END 2022-10-18 02:00 | disposition home or self-care (01) ==
PROVIDERS: Emergency Provider Emergency Medicine; Family Provider Family Medicine; PCP Family Medicine
DX: S82.001A Unspecified fracture of right patella, initial encounter for closed fracture (principal); W01.0XXA Fall on same level from slipping, tripping and stumbling without subsequent striking against object, initial encounter
CPT/HCPCS: 73562; 99283